=== PATIENT | male | born 1955 | race Caucasian/White ===

== ENCOUNTER 2016-05-29 22:20 | Inpatient (IN) | payer OTHER, MEDICARE ==
[~2016-05-29] VITALS: Ht 175.3 cm; Wt 122.9 kg
[2016-05-29 22:24] VITALS: BP 194/89; PULSE 79; RESP 18; TEMP 98.2; O2SAT 95
[2016-05-30 02:58] LABS: AUTOMATED NEUTROPHIL # 3.9 TH/MM3 (1.8-7.7); BASOPHIL # 0.1 TH/MM3 (0-0.2); BASOPHIL % 0.7 % (0.0-2.0); EOSINOPHIL # 0.2 TH/MM3 (0-0.4); EOSINOPHIL % 2.5 % (0.0-4.0); HEMATOCRIT 37.5 % (39.0-51.0); LYMPH % 34.8 % (9.0-44.0); LYMPHOCYTE # 2.7 TH/MM3 (1.0-4.8); MEAN CELL VOLUME 87.9 FL (80.0-100.0); MEAN CORPUSCULAR HEMOGLOBIN 30.9 PG (27.0-34.0); MEAN CORPUSCULAR HGB CONC 35.2 % (32.0-36.0); MONO % 11.4 % (0.0-8.0); NEUT % 50.6 % (16.0-70.0); PLATELET COUNT 148 TH/MM3 (150-450); RED BLOOD COUNT 4.26 MIL/MM3 (4.50-5.90); RED CELL DISTRIBUTION WIDTH 13.3 % (11.6-17.2); WHITE BLOOD COUNT 7.8 TH/MM3 (4.0-11.0)
[2016-05-30 03:01] LABS: HEMO FLAGS DIFF FINAL
[2016-05-30 03:18] LABS: ALT (GPT) 63 U/L (12-78); ANION GAP 6 MEQ/L (5-15); AST (GOT) 72 U/L (15-37); BICARBONATE 30.3 MEQ/L (21.0-32.0); BLOOD UREA NITROGEN 10 MG/DL (7-18); CHLORIDE 106 MEQ/L (98-107); GLOMERULAR FILTRATION RATE 79 ML/MIN (>89); POTASSIUM 3.6 MEQ/L (3.5-5.1); SODIUM (NA) 142 MEQ/L (136-145)
[2016-05-30 03:26] LABS: ALKALINE PHOSPHATASE 152 U/L (45-117); TOTAL BILIRUBIN ADULT 0.3 MG/DL (0.2-1.0)
[2016-05-30] MEDS ORDERED: MAGN500T4 PO (03:39)
[2016-05-30] MEDS ORDERED: PRAZ2CAP PO (03:39)
[2016-05-30] MEDS ORDERED: GABA300C5 PO (03:39)
[2016-05-30] MEDS ORDERED: ZYPR2.5T2 PO (03:39)
[2016-05-30] MEDS ORDERED: CHOL1CAP6 (03:39)
[2016-05-30] MEDS ORDERED: BUME2TAB PO (03:39)
[2016-05-30] MEDS ORDERED: HYDROMORPHONE PUMP (03:39)
[2016-05-30] MEDS ORDERED: ALPR1TAB3 PO (03:39)
[2016-05-30] MEDS ORDERED: SULF500T3 PO (03:39)
[2016-05-30] MEDS ORDERED: DHEA25CA (03:39)
[2016-05-30] MEDS ORDERED: FLUO60TA PO (03:39)
[2016-05-30 03:43] LABS: ACETAMINOPHEN LESS THAN 2.0 MCG/ML (10.0-30.0)
--- NOTE | 2016-05-30 04:34 | PD ---
HPI Chief Complaint: Psychiatric Symptoms Time Seen by Provider: 02:17 Travel History International Travel<30 days: No Contact w/Intl Traveler<30days: No Traveled to known affect area: No History of Present Illness HPI The patient is a 61 year old male who presents to the [facility] [address] emergency department with a history of increasing problems with depression over the last year. He reports that his depression is starting to affect his relationship with his and cause her increased stress. He also reports that he's been having mood swings and then argumentative with other family members. The patient reports that he's had difficulty getting along with multiple psychiatrists. He reports that his primary care physician has been prescribing his depression medication. This last week he went to her related to his depression being worse and experiencing suicidal ideations. He reports that he was started on Zyprexa. He reports that he is concerned about taking Zyprexa as he developed a reaction to Abilify approximately a year and a half ago. 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 He reports that he has been considering plans of harming himself, however he is also concerned about his receiving' s pension. He reports that he has been admitted for psychiatric reasons in the past. The patient reports having difficulty sleeping, he reports that he has daytime drowsiness and frequently falls. He reports that he was diagnosed with sleep apnea, however he is not tolerating wearing his mask. The patient denies any recent fevers, cough, congestion, neck pain, chest pain, shortness of breath , abdominal pain, vomiting, diarrhea, urinary symptoms, or other neurologic symptoms. [facility] Past Medical History Narrative Medical The patient's past medical history is significant for sleep apnea, chronic back pain, history of depression, posttraumatic stress disorder, bipolar disorder, neuropathy, peripheral edema. Bipolar Disorder: Yes Anxiety: Yes Depression: Yes Cardiovascular Problems: Yes (DEPENDENT EDEMA) Neurologic: Yes (NEUROPATHY) Tetanus Vaccination: Unknown Influenza Vaccination: No Past Surgical History Narrative Surgical The patient's past surgical history is significant for 4 prior back surgeries, 2 knee surgeries, pain pump implant, carpal tunnel release, ulnar nerve release bilaterally Neurologic Surgery: Yes (BACK X 4) Other Surgery: Yes (PAIN PUMP) Social History Alcohol Use: No Tobacco Use: No Substance Use: No Allergies-Medications (Allergen,Severity, Reaction): Coded Allergies: No Known Allergies (Unverified , 05/29/16) Reported Meds & Prescriptions Reported Meds & Active Scripts Active Reported Dhea (Prasterone (DHEA)) 25 Mg Cap Vitamin D-3 (Cholecalciferol) 1,000 Unit Cap Magnesium 500 Mg Tab 500 Mg PO DAILY Alprazolam 1 Mg Tab 1 Mg PO Q6H PRN [Hydromorphone Pump] 8.402 DAILY Bumetanide 2 Mg Tab 2 Mg PO Prazosin (Prazosin HCl) 2 Mg Cap 2 Mg PO HS Fluoxetine (Fluoxetine HCl) 60 Mg Tab 80 Mg PO DAILY Sulfasalazine 500 Mg Tab 500 Mg PO DAILY Zyprexa (Olanzapine) 2.5 Mg Tab Unknown Dose PO BID Gabapentin 300 Mg Cap 300 Mg PO HS Review of Systems Except as stated in HPI: all other systems reviewed are Neg General / Constitutional: No: Fever Eyes: No: Visual changes HENT: No: Headaches Cardiovascular: No: Chest Pain or Discomfort Respiratory: No: Shortness of Breath Gastrointestinal: No: Abdominal Pain Genitourinary: No: Dysuria Musculoskeletal: No: Pain Skin: No Rash Neurologic: No: Weakness, Focal Abnormalities, Change in Mentation, Slurred Speech, Sensory Disturbance Psychiatric: Positive: Anxiety, Depression, Suicidal Ideations, Mood Disorder, No: Homicidal Ideation Endocrine: No: Polydipsia Hematologic/Lymphatic: No: Easy Bruising Physical Exam Narrative General: The patient is a well-developed well-nourished male in no acute medical distress. Head and Neck exam: Head is normocephalic atraumatic. Eyes: EOMI, pupils are equal round and reactive to light. Nose: Midline septum with pink mucous membranes Mouth: Dentition unremarkable. Moist mucus membranes. Posterior oropharynx is not erythematous. No tonsillar hypertrophy. Uvula midline. Airway patent. Neck: No palpable lymphadenopathy. No nuchal rigidity. No thyromegaly. Cardiovascular: Regular rate and rhythm without murmurs, gallops, or rubs. Lungs: Clear to auscultation bilaterally. No wheezes, rhonchi, or rales. Abdomen: Soft, without tenderness to palpation in all 4 quadrants of the abdomen. No guarding, rebound, or rigidity. Normal bowel sounds are audible Extremities: No clubbing or cyanosis. The patient has trace to 1+ pitting edema bilateral lower extremities. No calf tenderness on palpation. Back: No costovertebral angle tenderness to palpation. Neurologic Exam: Grossly nonfocal. Skin Exam: No rash noted. Intact skin that is warm and dry. Data Data Last Documented VS Vital Signs Date Time Temp Pulse Resp B/P Pulse Ox O2 Delivery O2 Flow Rate FiO2 05/30/16 02:00 71 16 05/29/16 22:24 98.2 194/89 95 Orders Complete Blood Count With Diff (05/30/16 02:18) Comprehensive Metabolic Panel (05/30/16 02:18) Thyroid Stimulating Hormone (05/30/16 02:18) Urinalysis - C+S If Indicated (05/30/16:18) Iv Access Insert/Monitor (05/30/16:18) Ecg Monitoring (05/30/16:18) Psych Screen (05/30/16:18) Drug Screen, Random Urine (05/30/16:18) Alcohol (Ethanol) (05/30/16 02:18) Salicylates (Aspirin) (05/30/16 02:18) Tylenol (Acetaminophen) (05/30/16 02:18) Labs Laboratory Tests Test 05/30/16 02:30 White Blood Count 7.8 TH/MM3 Red Blood Count 4.26 MIL/MM3 Hemoglobin 13.2 GM/DL Hematocrit 37.5 % Mean Corpuscular Volume 87.9 FL Mean Corpuscular Hemoglobin 30.9 PG Mean Corpuscular Hemoglobin 35.2 % Concent Red Cell Distribution Width 13.3 % Platelet Count 148 TH/MM3 Mean Platelet Volume 9.6 FL Neutrophils (%) (Auto) 50.6 % Lymphocytes (%) (Auto) 34.8 % Monocytes (%) (Auto) 11.4 % Eosinophils (%) (Auto) 2.5 % Basophils (%) (Auto) 0.7 % Neutrophils # (Auto) 3.9 TH/MM3 Lymphocytes # (Auto) 2.7 TH/MM3 Monocytes # (Auto) 0.9 TH/MM3 Eosinophils # (Auto) 0.2 TH/MM3 Basophils # (Auto) 0.1 TH/MM3 CBC Comment DIFF FINAL Differential Comment Sodium Level 142 MEQ/L Potassium Level 3.6 MEQ/L Chloride Level 106 MEQ/L Carbon Dioxide Level 30.3 MEQ/L Anion Gap 6 MEQ/L Blood Urea Nitrogen 10 MG/DL Creatinine 0.97 MG/DL Estimat Glomerular Filtration 79 ML/MIN Rate Random Glucose 85 MG/DL Calcium Level 8.6 MG/DL Total Bilirubin 0.3 MG/DL Aspartate Amino Transf 72 U/L (AST/SGOT) Alanine Aminotransferase 63 U/L (ALT/SGPT) Alkaline Phosphatase 152 U/L Total Protein 7.8 GM/DL Albumin 3.6 GM/DL Thyroid Stimulating Hormone 1.360 uIU/ML 3rd Gen Salicylates Level LESS THAN 1.7 MG/DL Acetaminophen Level LESS THAN 2.0 MCG/ML Ethyl Alcohol Level LESS THAN 3 MG/DL MDM Medical Decision Making Medical Screen Exam Complete: Yes Emergency Medical Condition: Yes Medical Record Reviewed: Yes Differential Diagnosis Depression with suicidal ideations, versus exacerbation of bipolar disorder Narrative Course During the course of the patients emergency department visit, the patients history, examination, and differential diagnosis were reviewed with the patient. The patient had IV access obtained and blood work sent for analysis. The patient was placed on a bus driver/monitor with oximetry and blood pressure monitoring. A psychiatric screen was ordered. The patients laboratory studies were reviewed and remarkable for a white count of 7.8, hemoglobin 13.2, platelets 148 with 11.4 monocytes, CMP is remarkable for GFR 79, AST 72, alkaline phosphatase 152, TSH 1.36, salicylate less than 1.7 , acetaminophen less than 2, alcohol level less than 3 The patient has been medically cleared for admission to the psychiatric service. The patient is a voluntary admission. The patient meets admission criteria for stabilization from a psychiatric standpoint as he is increasingly depressed with suicidal ideations and a plan. Diagnosis Primary Impression: Depression with suicidal ideation Admitting Information Admitting Physician Requests: Admit Lauren Barr MD May 30, 2016 04:33
[2016-05-30 07:58] VITALS: BP 178/79
[2016-05-30] MEDS ORDERED: BENZTROPINE MESYLATE 2 MG/2 ML VIAL IM PRN (08:45)
[2016-05-30] MEDS ORDERED: LORazepam 2 MG/ML VIAL IM PRN (08:45)
[2016-05-30] MEDS ORDERED: BENZTROPINE MESYLATE 1 MG TAB PO PRN (08:45)
--- NOTE | 2016-05-30 08:47 | HHI.HP ---
Provisional Diagnosis Admission Date 05/30/2016 [place]. 1. Major depressive disorder, recurrent, severe without psychotic features Rule out contribution from sleep disorder 2. Rule out posttraumatic stress disorder 3. Underlying sleep disorder with features of insomnia, reported central sleep apnea and parasomnias Certification of Person's Competence To Provide Express and Informed Consent I have personally examined Hans Tidwell , a person being served at [facility] on, May 30, 2016 08:34. Express and informed consent means consent voluntarily given in writing, by a competent person, after sufficient explanation and disclosure of the subject matter involved to enable the person to make a knowing and willful decision without any element of force, fraud, deceit, duress, or other form of constraint or coercion. This person is 18 years of age or older, is not now known to be incompetent to consent to treatment with a guardian advocate, and does not have a health care surrogate or proxy currently making medical treatment decisions. I have found this person to be one of the following: [x] Competent to provide express and informed consent, as defined above, for voluntary admission to this facility and is competent to provide express and informed consent for treatment. He/she has the consistent capacity to make well reasoned, willful, and knowing decisions concerning his or her medical or mental health treatment. The person fully and consistently understands the purpose of the admission for examination/placement and is fully capable of personally exercising all rights assured [place] Incompetent to provide express and informed consent to voluntary admission, and this is incompetent to provide express and informed consent to treatment. The person must be transferred to involuntary status and a petition for a guardian advocate filed with the Circuit Court. [] Refusing to provide express and informed consent to voluntary admission but is competent to provide express and informed consent for treatment. The person must be discharged or transferred to involuntary status. Form shall be completed within 24 hours of a person's arrival at the receiving facility and filed in the clinical record of each person: 1. Admitted on a voluntary basis 2. Permitted to provide express and informed consent to his/her own treatment 3. Allowed to transfer from involuntary to voluntary status 4. Prior to permitting a person to consent to his or her own treatment after having been previously found incompetent to consent to treatment. History of Present Illness Capacity: Has Capacity HPI Mr. Tidwell is a 61-year-old male with a reported history of posttraumatic stress disorder and sleep disorder who presents on a voluntary basis for psychiatric evaluation. Reviewing our electronic medical record, I note that this is patient's first visit to [facility]. Patient seen and examined. Chart reviewed. Case discussed with nurse in the J- pod. Patient's is at the bedside. On my examination today, the patient reports that he has been struggling with sleep disorder for the last 20 years or so. He reports that he will go for 3 days without sleep during which she feels quite fatigued and then "crash" and sleep for 3 or 4 hours. He feels quite fatigued when he goes without sleep. He has seen sleep specialists in the past and has had PSG's. From what I can discern from his narrative, he has been diagnosed with some degree of central sleep apnea and decreased REM sleep. He is prescribed PAP therapy but is reportedly nonadherent with it. Patient reports that he has been feeling depressed over the last year or so. Concentration is poor. Energy level is low. Anhedonia present. Irritability present. He reports that within the last few weeks he has been feeling suicidal although he does not articulate a specific plan or intent at this time. No hypomanic or manic symptoms. Denies audiovisual hallucinations except possibly some hypnagogic and hypnopompic hallucinations. No evident delusions. He describes vivid dreams but not nightmares per se. Possibly some hyperarousal but no reported avoidance. The remainder of the psychiatric ROS is negative. Past psychiatric history: Patient reports a prior diagnosis of PTSD. He reports that he has been out of psychiatric care for 10 months but has previously seen Marlyn Orlando and Julia. He reports that he was psychiatrically admitted in 1995 with opiate withdrawal. He denies any history of suicide attempts. ROS: Patient describes somnambulism with falls during sleep. He also reports violent outbursts during sleep. 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 No homicidal ideation. No known history of violence. Patient is feeling somewhat more irritable. Violence risk - self (6 mos) Elevated. Patient endorses worsening mood with suicidal ideation. 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 Denies any other substance use. Alcohol level undetectable. Urine toxicology not available for my review. Past Family Social History Coded Allergies: No Known Allergies (Unverified , 05/29/16) Past Medical History Includes a history of back pain and sleep disorder. Reported Medications Prasterone (Dhea)25 Mg Cap 05/30/16 Cholecalciferol (Vitamin D-3)1,000 Unit Cap 05/30/16 Magnesium 500 Mg [id number] Mg PO DAILY Ref 0 05/30/16 Alprazolam 1 Mg Tab1 Mg PO Q6H PRN (ANXIETY) Ref 0 05/30/16 [Hydromorphone Pump] No Conflict Check8.402 Daily 05/30/16 Bumetanide 2 Mg Tab2 Mg PO Ref 0 05/30/16 Prazosin 2 Mg Cap2 Mg PO HS #60 CAP Ref 0 05/30/16 Fluoxetine 60 Mg Tab80 Mg PO DAILY #30 TAB Ref 0 05/30/16 Sulfasalazine 500 Mg [id number] Mg PO DAILY #120 TAB Ref 0 05/30/16 Olanzapine (Zyprexa)2.5 Mg Tab5 PO BID #60 TAB Ref 0 05/30/16 Gabapentin 300 Mg [id number] Mg PO HS #30 CAP Ref 0 05/30/16 Family History Patient denies a family history of serious mental illness, substance use disorder or suicide Social History Patient reports that he lives with his . He has 2 grown children and grandchildren. 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 He has a 12th grade education and some college. Denies any or legal history. He was a Evangelical for 22 years and then returned to his Jain hussein. He previously did had a firearm, but his removed from the home. Patient's Strengths (min. 2) In a monitored setting. Verbally fluent. Physical Exam Physical examination completed by ED provider. On my examination today, patient appears to be in no acute physical distress. No motor abnormalities noted. Laboratories and vital signs reviewed: Vital Signs Vital Signs Date Time Temp Pulse Resp B/P Pulse Ox O2 Delivery O2 Flow Rate FiO2 05/30/16 07:58 178/79 05/30/16 02:00 71 16 05/29/16 22:24 98.2 95 Lab Results Item Value Date Time White Blood Count 7.8 TH/MM3 05/30/16229 Hemoglobin 13.2 GM/DL 05/30/16229 Platelet Count 148 TH/MM3 L 05/30/16229 Sodium Level 142 MEQ/L 05/30/16229 Potassium Level 3.6 MEQ/L 05/30/16229 Chloride Level 106 MEQ/L 05/30/16229 Carbon Dioxide Level 30.3 MEQ/L 05/30/16229 Blood Urea Nitrogen 10 MG/DL 05/30/16229 Creatinine 0.97 MG/DL 05/30/16229 Aspartate Amino Transf (AST/SGOT) 72 U/L H 05/30/16229 Alanine Aminotransferase (ALT/SGPT) 63 U/L 05/30/16229 Alkaline Phosphatase 152 U/L H 05/30/16229 Thyroid Stimulating Hormone 3rd Gen 1.360 uIU/ML 05/30/16229 Ethyl Alcohol Level LESS THAN 3 MG/DL 05/30/16229 Mental Status Examination Patient is casually dressed. He is fairly well groomed and certainly maintaining basic hygiene. He is awake and alert and oriented to person, Hospital and approximate date. No evidence of delirium. No motor abnormalities noted. Speech is within normal limits for rate, tone and volume. Language and fund of knowledge seem average. Mood is reportedly depressed and affect is restricted and dysphoric. Thought process linear. No loosening of associations. No evident delusions. No audiovisual hallucinations. Endorses suicidal ideation without specific plan or intent. No reported urge to hurt himself on the inpatient psychiatric unit. No homicidal ideation. Insight and judgment are fair. Assessment & Plan Problem List: (1) Major depressive disorder ICD Code: F32.9 Assessment & Plan This is a 61-year-old male with psychiatric history as detailed above who presents on a voluntary basis seeking psychiatric evaluation. On my examination today, the patient describes worsening depression with onset of suicidal ideation. He also seems to have a comorbid sleep disorder with components of insomnia, central sleep apnea nonadherent with PAP therapy and some degree of parasomnia. I suspect the sleep disorder may be exacerbating his psychiatric condition. The patient is requesting voluntary psychiatric admission for stabilization in order to allow him to participate in a course of cognitive behavioral therapy for insomnia. I will plan to admit the patient to the inpatient psychiatric unit for observation and stabilization. Admit inpatient. Voluntary status. I have asked the nursing staff to clarify patient's home medication regimen (e.g. dose of Zyprexa is unclear) and also obtain from most recent records from patient's psychiatrist as well as his sleep physician to better guide treatment going forward. I will continue patient's Prozac and prazosin. Ativan as needed for anxiety, Cogentin as needed for EPS, Benadryl as needed for sleep. Vitals every shift. Counselor to see. Disposition planning. Estimated length of stay: 5-7 days. Discharge Planning Pending psychiatric stabilization Request HC Surrog/Guard Advoc?: No Problem Qualifiers (1) Major depressive disorder: Qualified Code: F33.2 - Severe episode of recurrent major depressive disorder, without psychotic features Ko Rasheed MD May 30, 2016 08:47
[2016-05-30] MEDS: sulfaSALAzine 500 MG TAB PO SCH (09:00)
[2016-05-30] MEDS: FLUoxetine HCL 20 MG CAP PO SCH (09:00)
[2016-05-30] MEDS: REMOVE OLD PATCH T-DERMAL SCH (09:00)
[2016-05-30] MEDS: NICOTINE 21 MG/24 HR PATCH T-DERMAL SCH (09:00)
[2016-05-30 09:21] LABS: BLOOD, URINE NEG (NEG); COMMENT (UR) CULT NOT INDICATED; CULTURE IF INDICATED CULT NOT INDICATED; GLUCOSE,URINE NEG (NEG); KETONE, URINE NEG (NEG); MUCUS URINE FEW /lpf (OCC); NITRITE,URINE NEG (NEG); PH, URINE 6.5 (5.0-8.5); URINE COLOR DARK-YELLOW (YELLW/STRAW)
[2016-05-30 09:27] LABS: AMPHETAMINE, URINE NEG (NEG); BARBITURATES, URINE NEG (NEG); COCAINE, URINE NEG (NEG)
[2016-05-30 11:54] VITALS: BP 157/78; PULSE 60; RESP 16; TEMP 98.6; O2SAT 96
[2016-05-30] MEDS: MAGNESIUM OXIDE 400 MG TAB PO SCH (16:00)
[2016-05-30] MEDS: LORazepam 0.5 MG TAB PO PRN (16:18)
[2016-05-30] MEDS: ALUMINUM/MAGNESIUM/SIMETH 30 ML CUP PO PRN (16:18)
[2016-05-30 19:11] VITALS: BP 161/71; PULSE 68; RESP 16
[2016-05-30 19:35] VITALS: BP 146/67; PULSE 61; RESP 16; TEMP 98; O2SAT 95
--- NOTE | 2016-05-30 20:22 | RADRPT ---
EXAM DATE/TIME: 05/30/2016 19:50 [facility] COMPARISON: No previous studies available for comparison. INDICATIONS : Right hip pain. MEDICAL HISTORY : None. SURGICAL HISTORY : None. ENCOUNTER: Initial ACUITY: 1 day PAIN SCORE: 0/10 LOCATION: Right hip FINDINGS: Examination of the right hip was performed with AP Pelvis. There is moderate osteoarthritis of the h ips. Infusion catheter apparatus projected over the lower spinal canal and left lower quadrant. Previ ous fixation lower lumbar spine with laminectomies. CONCLUSION: 1. Moderate osteoarthritis of the bilateral hips. Joaquín Hawkins MD on May 30, 2016 at 20:11 Board Certified Radiologist. This report was verified electronically.
[2016-05-30 20:50] VITALS: BP 160/72; PULSE 67; RESP 18; TEMP 98.3; O2SAT 95
[2016-05-30] MEDS: GABAPENTIN 300 MG CAP PO SCH (21:34)
[2016-05-30] MEDS: PRAZOSIN HCL 2 MG CAP PO SCH (21:34)
[2016-05-30] MEDS: ACETAMINOPHEN 325 MG TAB PO PRN (21:35)
[2016-05-31 00:53] VITALS: BP 149/71; PULSE 61; RESP 20; TEMP 98.2; O2SAT 95
[2016-05-31] MEDS: diphenhydrAMINE HCL 50 MG CAP PO PRN ×2 (02:10→22:00)
[2016-05-31 05:18] VITALS: BP 131/60; PULSE 66; RESP 18; TEMP 98.5; O2SAT 99
[2016-05-31 06:39] VITALS: BP 131/60; PULSE 66; RESP 20; TEMP 98.5; O2SAT 99
[2016-05-31] MEDS: NICOTINE 21 MG/24 HR PATCH T-DERMAL SCH (09:00)
[2016-05-31] MEDS ORDERED: INFLUENZA VIRUS VACCINE (QUADRIVALENT) 0.5 ML SYR IM ONE (09:00)
[2016-05-31] MEDS: REMOVE OLD PATCH T-DERMAL SCH (09:00)
[2016-05-31] MEDS: FLUoxetine HCL 20 MG CAP PO SCH (09:20)
[2016-05-31] MEDS: MAGNESIUM OXIDE 400 MG TAB PO SCH (09:21)
[2016-05-31] MEDS: sulfaSALAzine 500 MG TAB PO SCH (09:21)
[2016-05-31] MEDS: LORazepam 0.5 MG TAB PO PRN (09:30)
--- NOTE | 2016-05-31 09:40 | HHI.PYPN ---
Subjective Remarks Patient continues to report that he just can't take it anymore. He presents himself as unable to live with his current situation and his chronic history of depression and nonresponse to medications. To this physician he appears invested in remaining ill. He does not use his sleep apnea machine despite the fact that he has great difficulty with sleeping. This could also affect his mood. This physician spoke with Dr. Sugey mora about ongoing treatment. Review of Systems ROS Limitations: Clinical Condition Except as stated in HPI: all other systems reviewed are Neg Objective Alert: Yes [place]: Person, Place, Date, Situation Mood: Calm Affect: Restricted Memory Intact: Immediate, Recent, Remote Hallucinations: Other Delusions: No Delusion Type: Other Suicidal: Ideation Homicidal: Ideation Insight/Judgment Impaired Vitals/IOs Vital Signs Date Time Temp Pulse Resp B/P Pulse Ox O2 Delivery O2 Flow Rate FiO2 05/31/16 06:39 98.5 66 20 131/60 99 Assessment & Plan Problem List: (1) Major depressive disorder ICD Code: F32.9 Assessment & Plan Estimated LOS: 4-5 days patient continues to complain vociferously and tangentially about his numerous somatic issues and his numerous stressors and his numerous emotional issues. This physician spoke with Dr. Sugey mora about medication management and he will accept the patient in transfer. Justification for Cont. Inpt. Suicidal ideation. Request HC Surrog/Guard Advoc?: No Problem Qualifiers (1) Major depressive disorder: Qualified Code: F33.2 - Severe episode of recurrent major depressive disorder, without psychotic features Antonio Brothers MD May 31, 2016 09:40
[2016-05-31 09:53] LABS: ANION GAP 7 MEQ/L (5-15); BICARBONATE 29.9 MEQ/L (21.0-32.0); BLOOD UREA NITROGEN 12 MG/DL (7-18); CHLORIDE 102 MEQ/L (98-107); GLOMERULAR FILTRATION RATE 93 ML/MIN (>89); HDL CHOLESTEROL 45.9 MG/DL (40.0-60.0); LDL CHOLESTEROL 117 MG/DL (0-99); POTASSIUM 3.9 MEQ/L (3.5-5.1); SODIUM (NA) 139 MEQ/L (136-145)
--- NOTE | 2016-05-31 13:34 | PD.CONS ---
HPI Service [facility] Hospitalists Consult Requested By Psychiatric service Reason for Consult Medical management Primary Care Physician Ana Fitzpatrick MD Diagnoses: History of Present Illness This is a 61-year-old male with a past medical history significant for PTSD, anxiety, sleep disorder, depression, FAITH non CPAP compliant, degenerative disc disease lumbar spine status post back surgery 4 including previous fusion, neuropathy, chronic back pain, previous PE and BPH who was admitted to [facility] on a voluntary basis for psychiatric evaluation for worsening depression and suicidal ideation. Hospitalist service was consulted for medical management. Patient was seen and examined today. Patient complains of stream fatigue secondary to loss of sleep. He also complains of new onset swelling in his legs and feet just since his admission to psych facility. He denies any fever/chills, nausea/vomiting, dizziness, lightheadedness, palpitations, chest pain, shortness of breath, abdominal pain or diarrhea. Patient does report intermittent constipation. His last BM was yesterday. He also reports so to of bright red blood per rectum the most recent being yesterday. He denies previous diagnosis of hemorrhoids. He denies any dark or tarry stools. He states he has a history of intermittent urinary retention. He's had a previous TURP in the past. He self caths intermittently. He reports extreme hesitancy which is chronic. Patient states he has a rather sedentary lifestyle. He uses a cane at home and uses a wheelchair for community ambulation. Review of Systems Except as stated in HPI: all other systems reviewed are Neg (10 point review of systems completed and all pertinents negative except as stated in history of present illness) Past Family Social History Allergies: Coded Allergies: No Known Allergies (Unverified , 05/29/16) Past Medical History PTSD Anxiety BPH Intermittent urinary retention Degenerative disc disease of lumbar spine History of PE FAITH, non CPAP compliant Lower extremity neuropathy Chronic pain syndrome status post implantation of Dilaudid pain pump Past Surgical History TURP Status post implantation of a pain pump Back surgery 4 including a previous fusion Knee surgery x 2 CTR Ulnar nerve release bilaterally Reported Medications Prasterone (Dhea)25 Mg Cap 05/30/16 Cholecalciferol (Vitamin D-3)1,000 Unit Cap 05/30/16 Magnesium 500 Mg [id number] Mg PO DAILY Ref 0 05/30/16 Alprazolam 1 Mg Tab1 Mg PO Q6H PRN (ANXIETY) Ref 0 05/30/16 [Hydromorphone Pump] No Conflict Check8.402 Daily 05/30/16 Bumetanide 2 Mg Tab2 Mg PO Ref 0 05/30/16 Prazosin 2 Mg Cap2 Mg PO HS #60 CAP Ref 0 05/30/16 Fluoxetine 60 Mg Tab80 Mg PO DAILY #30 TAB Ref 0 05/30/16 Sulfasalazine 500 Mg [id number] Mg PO DAILY #120 TAB Ref 0 05/30/16 Olanzapine (Zyprexa)2.5 Mg Tab5 PO BID #60 TAB Ref 0 05/30/16 Gabapentin 300 Mg [id number] Mg PO HS #30 CAP Ref 0 05/30/16 Active Ordered Medications Current Medications Medications (Trade) Dose Ordered Sig/Reinier Route Start Time Stop Time Status Last Admin (PROzac) 80 mg DAILY PO 05/30/16 09:00 05/31/16 09:20 (Neurontin) 300 mg HS PO 05/30/16 21:00 05/30/16 21:34 (Minipress) 2 mg HS PO 05/30/16 21:00 05/30/16 21:34 (Azulfidine) 500 mg DAILY PO 05/30/16 09:00 05/31/16 09:21 (Mag-Ox) 400 mg DAILY PO 05/30/16 10:00 05/31/16 09:21 (Ativan) 0.5 mg Q12H PRN PO 05/30/16 08:45 05/30/16 16:18 (Ativan Inj) 0.5 mg Q12H PRN IM 05/30/16 08:45 (Benadryl) 50 mg HS PRN PO 05/30/16 08:45 05/31/16 02:10 (Tylenol) 650 mg Q4H PRN PO 05/30/16 08:45 05/30/16 21:35 (Milk Of Magnesia Liq) 30 ml DAILY PRN PO 05/30/16 08:45 (Mag-Al Plus Susp Liq) 30 ml Q6H PRN PO 05/30/16 08:45 05/30/16 16:18 (Habitrol 21 Mg Patch.24 Hr) 1 patch DAILY T-DERMAL 05/30/16 09:00 (Cogentin) 1 mg Q12H PRN PO 05/30/16 08:45 (Cogentin Inj) 1 mg Q12H PRN IM 05/30/16 08:45 Miscellaneous Information 1 DAILY T-DERMAL 05/30/16 09:00 Family History Father - coronary artery disease, prostate cancer, lung cancer Mother - DM Social History Patient is and lives with his . He is currently on disability but previously worked as a deputy. He has a remote history of tobacco use having quit 25 years ago and previous to that he reports smoking half pack a day for 16 years. He denies any alcohol consumption or illicit drug use. Physical Exam Vital Signs Vital Signs Date Time Temp Pulse Resp B/P Pulse Ox O2 Delivery O2 Flow Rate FiO2 05/31/16 06:39 98.5 66 20 131/60 99 05/31/16 05:18 98.5 66 18 131/60 99 05/31/16 00:53 98.2 61 20 149/71 95 05/30/16 20:50 98.3 67 18 160/72 95 05/30/16 19:35 98.0 61 16 146/67 95 05/30/16 19:11 68 16 161/71 Physical Exam GENERAL: This is a well-nourished, well-developed patient, in no apparent distress. A&Ox3. Pleasant and cooperative. SKIN: No rashes, ecchymoses or lesions. Warm and dry. HEAD: Atraumatic. Normocephalic. No temporal or scalp tenderness. EYES: Pupils equal round and reactive. Extraocular motions intact. No scleral icterus. No injection or drainage. ENT: Nose without bleeding, purulent drainage or septal hematoma. Throat without erythema, tonsillar hypertrophy or exudate. Uvula midline. Airway patent. NECK: Trachea midline. No lymphadenopathy. Supple, nontender, no meningeal signs. CARDIOVASCULAR: Regular rate and rhythm without murmurs, gallops, or rubs. RESPIRATORY: Clear to auscultation. Breath sounds equal bilaterally. No wheezes , rales, or rhonchi. GASTROINTESTINAL: Abdomen soft, non-tender, nondistended. No hepato-splenomegaly , or palpable masses. No guarding. MUSCULOSKELETAL: Extremities without clubbing or cyanosis. 1+ edema noted in BLEs. No joint tenderness or effusion noted. No calf tenderness. NEUROLOGICAL: Awake and alert. Laboratory Laboratory Tests Test 05/31/16 07:56 Sodium Level 139 Potassium Level 3.9 Chloride Level 102 Carbon Dioxide Level 29.9 Anion Gap 7 Blood Urea Nitrogen 12 Creatinine 0.84 Estimat Glomerular Filtration 93 Rate Random Glucose 97 Calcium Level 9.2 Triglycerides Level 159 Cholesterol Level 195 LDL Cholesterol 117 HDL Cholesterol 45.9 Cholesterol/HDL Ratio 4.24 Result Diagram: 05/30/16 0230 05/31/16 0756 Assessment and Plan Assessment and Plan 61-year-old male with a past medical history significant for PTSD, anxiety, sleep disorder, degenerative disc disease lumbar spine status post back surgery 4 including previous fusion, neuropathy, chronic back pain, previous PE and BPH who was admitted to [facility] on a voluntary basis for psychiatric evaluation for worsening depression and suicidal ideation. Hospitalist service was consulted for medical management. //Depression and suicidal ideation Management per psychiatric team //Bilateral lower extremity edema Patient's home Bumex held at time of admission likely contributing to patient 's increase in fluid retention Resume home Bumex dose 2mg daily. Patient denies previous history of CHF and denies ever having had an echocardiogram performed. Will order echo for further evaluation. Given patient's history of sedentary lifestyle and recent increase in bilateral lower x-ray swelling, will obtain Doppler studies to rule out DVT although there is a low likelihood Monitor electrolytes Monitor for improvement //Chronic back pain s/p previous implantation of pain pump PT eval/tx Continue with home sulfasalazine dose for inflammation per patient report //BPH with intermittent urinary retention requiring self cath Monitor UOP allow for self catheterization if indicated //Neuropathy continue with home Gabapentin dose //FAITH supplemental oxygen use at nighttime //BRBPR Likely secondary to hemorrhoids given history of intermittent opioid-induced constipation Hemoglobin and hematocrit stable monitor //DVT prophylaxis Lovenox sq Discussed with patient and Dr. Wayne The exam, history, and the medical decision-making described in the above note were completed with the assistance of the mid-level provider. I reviewed and agree with the findings presented. I attest that I had a [id number] encounter with the patient on the same day, and personally performed and documented my assessment and findings in the medical record. Zeynep Perez May 31, 2016 13:34 Crow Wayne MD May 31, 2016 21:50
[2016-05-31] MEDS: BUMETANIDE 1 MG TAB PO SCH (14:00)
[2016-05-31] MEDS: ACETAMINOPHEN 325 MG TAB PO PRN (15:07)
[2016-05-31 16:52] LABS: HEMOGLOBIN A1a 1.1 %; HEMOGLOBIN A1b 1.6 %; HEMOGLOBIN Ao 86.2 %; HEMOGLOBIN LA1C 1.8 %; HEMOGLOBIN P3 3.4 %
[2016-05-31] MEDS: ENOXAPARIN SODIUM 40 MG/0.4 ML SYRINGE SQ SCH (17:00)
[2016-05-31 17:07] VITALS: O2SAT 94
[2016-05-31 17:52] VITALS: BP 129/60; PULSE 65; RESP 17; TEMP 98.3; O2SAT 95
--- NOTE | 2016-05-31 19:49 | RADRPT ---
EXAM DATE/TIME: 05/31/2016 18:23 [facility] COMPARISON: No previous studies available for comparison. INDICATIONS : Bilateral lower extremity edema. MEDICAL HISTORY : Neuropathy. Bipolar disorder. Dependent edema. Anticoagulant, heparin. SURGICAL HISTORY : Back surgeries. Knee surgery. ENCOUNTER: Initial ACUITY: 1 day PAIN SCORE: 3/10 LOCATION: Bilateral legs. TECHNIQUE: Venous ultrasound of the left and right leg was performed from the inguinal ligament to the proximal calf. Real-time, color Doppler and spectral tracing, compression and augmentation techniques were us ed. FINDINGS: RIGHT LEG: There is normal compressibility of the deep venous system from the inguinal region to the proximal ca lf. No echogenic clot is seen in the lumen of the common femoral, femoral, popliteal, and posterior tibial veins. There is a normal response of the venous system to proximal and distal augmentation an d respiration. LEFT LEG: There is normal compressibility of the deep venous system from the inguinal region to the proximal ca lf. No echogenic clot is seen in the lumen of the common femoral, femoral, popliteal, and posterior tibial veins. There is a normal response of the venous system to proximal and distal augmentation an d respiration. CONCLUSION: Normal examination. Andrea Kirby Jr., MD on May 31, 2016 at 19:47 Board Certified Radiologist. This report was verified electronically.
[2016-05-31] MEDS: PRAZOSIN HCL 2 MG CAP PO SCH (20:56)
[2016-05-31] MEDS: GABAPENTIN 300 MG CAP PO SCH (20:56)
[2016-06-01] MEDS: MAGNESIUM HYDROXIDE SUSP 30 ML CUP PO PRN (02:43)
[2016-06-01] MEDS: LORazepam 0.5 MG TAB PO PRN ×2 (02:43→14:16)
[2016-06-01 05:15] VITALS: BP 165/89; PULSE 97; RESP 24; TEMP 98.1; O2SAT 95
[2016-06-01] MEDS ORDERED: oxyCODONE/ACETAMINOPHEN 7.5 MG/325 MG TAB PO ONE (06:15)
[2016-06-01 06:25] VITALS: BP 162/72; PULSE 76; RESP 18; TEMP 98.1; O2SAT 96
[2016-06-01 06:27] VITALS: BP 162/72; PULSE 76; RESP 18; TEMP 98.1; O2SAT 96
[2016-06-01 07:36] LABS: BICARBONATE 26.8 MEQ/L (21.0-32.0); MAGNESIUM 2.2 MG/DL (1.5-2.5); POTASSIUM 4.3 MEQ/L (3.5-5.1)
--- NOTE | 2016-06-01 07:41 | RADRPT ---
EXAM DATE/TIME: 06/01/2016 06:38 [facility] COMPARISON: No previous studies available for comparison. INDICATIONS : Fall, pain through entire spine. RADIATION DOSE: 30.20 CTDIvol (mGy) MEDICAL HISTORY : None SURGICAL HISTORY : Lumbar surgery ENCOUNTER: Initial ACUITY: 1 day PAIN SCALE: 7/10 LOCATION: back TECHNIQUE: Volumetric scanning of the cervical spine was performed. Multiplanar reconstructions in the sagittal, coronal and oblique axial planes were performed. Using automated exposure control and adjustment o f the mA and/or kV according to patient size, radiation dose was kept as low as reasonably achievable to obtain optimal diagnostic quality images. FINDINGS: VERTEBRAE: There are moderate primary degenerative changes throughout the cervical spine. There is some disc spa ce narrowing at all levels. No acute bony fracture. ALIGNMENT: No evidence of subluxation. C2-C3: The bony spinal canal is normal in size. No evidence of disc bulge or herniation. The neural forami na are bilaterally patent. C3-C4: Broad-based bulging with a disc osteophyte complex. There is narrowing of the neural foramina bilater ally. C4-C5: The bony spinal canal is normal in size. No evidence of disc bulge or herniation. The neural forami na are bilaterally patent. C5-C6: The bony spinal canal is normal in size. No evidence of disc bulge or herniation. There is narrowing of the right neural foramina from facet arthritis. The left neural foramen is patent. C6-C7: The bony spinal canal is normal in size. No evidence of disc bulge or herniation. The neural forami na are bilaterally patent. C7-T1: The bony spinal canal is normal in size. No evidence of disc bulge or herniation. The neural forami na are bilaterally patent. CONCLUSION: 1. No acute bony fracture. 2. Moderate diffuse primary bony degenerative changes, disc degeneration and disc space narrowing at multiple levels. 3. Broad-based bulge and a disc osteophyte complex at C3-4. Aldo Jacobson MD on June 01, 2016 at 7:36 Board Certified Radiologist. This report was verified electronically.
--- NOTE | 2016-06-01 07:43 | RADRPT ---
EXAM DATE/TIME: 06/01/2016 06:42 [facility] COMPARISON: No previous studies available for comparison. INDICATIONS : Fall, pain through entire spine. RADIATION DOSE: 32.57 CTDIvol (mGy) ; Combined studies - Thoracic Spine/Lumbar Spine MEDICAL HISTORY : None SURGICAL HISTORY : Lumbar surgery ENCOUNTER: Initial ACUITY: 1 day PAIN SCALE: 7/10 LOCATION: back TECHNIQUE: Volumetric scanning of the thoracic spine was performed. Multiplanar reconstructions in the sagittal , coronal and oblique axial planes were performed. Using automated exposure control and adjustment o f the mA and/or kV according to patient size, radiation dose was kept as low as reasonably achievable to obtain optimal diagnostic quality images. FINDINGS: The vertebral bodies of the thoracic spine are in normal alignment without evidence of subluxation. Vertebral body height is maintained. No fractures are seen. There are primary bony degenerative smalls ges throughout the thoracic spine. T1-T2: Normal. T2-T3: The thecal sac has a normal diameter. No evidence of disc bulge or protrusion. T3-T4: The thecal sac has a normal diameter. No evidence of disc bulge or protrusion. T4-T5: The thecal sac has a normal diameter. No evidence of disc bulge or protrusion. T5-T6: The thecal sac has a normal diameter. No evidence of disc bulge or protrusion. T6-T7: The thecal sac has a normal diameter. No evidence of disc bulge or protrusion. T7-T8: The thecal sac has a normal diameter. No evidence of disc bulge or protrusion. T8-T9: The thecal sac has a normal diameter. No evidence of disc bulge or protrusion. T9-T10: The thecal sac has a normal diameter. No evidence of disc bulge or protrusion. T10-T11: The thecal sac has a normal diameter. No evidence of disc bulge or protrusion. T11-T12: The thecal sac has a normal diameter. No evidence of disc bulge or protrusion. T12-L1: The thecal sac has a normal diameter. No evidence of disc bulge or protrusion. CONCLUSION: 1. No acute bony fracture. 2. Diffuse primary bony degenerative type changes. Aldo Jacobson MD on June 01, 2016 at 7:39 Board Certified Radiologist. This report was verified electronically.
--- NOTE | 2016-06-01 07:50 | RADRPT ---
EXAM DATE/TIME: 06/01/2016 06:42 [facility] COMPARISON: No previous studies available for comparison. INDICATIONS : Fall, pain through entire spine. RADIATION DOSE: 32.57 CTDIvol (mGy) ; Combined studies - Thoracic Spine/Lumbar Spine MEDICAL HISTORY : None SURGICAL HISTORY : Lumbar surgery ENCOUNTER: Initial ACUITY: 1 day PAIN SCALE: 7/10 LOCATION: back TECHNIQUE: Volumetric scanning of the lumbar spine was performed. Multiplanar reconstructions in the sagittal, coronal and oblique axial planes were performed. Using automated exposure control and adjustment of the mA and/or kV according to patient size, radiation dose was kept as low as reasonably achievable t o obtain optimal diagnostic quality images. FINDINGS: VERTEBRAE: Moderate diffuse primary degenerative changes are noted throughout the lumbar spine. There is evidenc e of previous lumbar spinal surgery with laminectomy and fusion from L2-S1. There is also fusion of t he left SI joint. There is disc degeneration with disc space narrowing at L1-2, L2-3, L3-4 and L5-S1. No acute bony fracture. The hardware is grossly intact. There is a spinal catheter in place with the tip at the level of T11-T12. ALIGNMENT: No evidence of subluxation. T12-L1: The thecal sac has a normal diameter. No evidence of disc bulge or protrusion. The neural foramina are patent bilaterally. L1-L2: The thecal sac has a normal diameter. No evidence of disc bulge or protrusion. The neural foramina are patent bilaterally. L2-L3: There is broad-based bulging with posterior bony degenerative changes causing some spinal canal steno sis. There is narrowing of the neural foramina bilaterally. There is a left-sided pedicular screw in place in the body of L2. L3-L4: Broad-based bulging with posterior bony degenerative changes causing some spinal canal stenosis. Ther e is narrowing of the neural foramina bilaterally. There is a pedicular screw on the left side in L3. L4-L5: There are bilateral pedicular screws in L4. No significant extradural defects are seen in the canal. The neural foramina appear patent bilaterally. There are postsurgical changes characteristic of a torres inectomy. L5-S1: The thecal sac has a normal diameter. No evidence of disc bulge or protrusion. The neural foramina are patent bilaterally. Postsurgical changes characteristic of a laminectomy. There is a single right pedicle screw in L5. There are 2 pedicular screws in S1. CONCLUSION: 1. No acute bony fracture. 2. Postsurgical changes characteristic of a laminectomy and fusion from L2-S1 3. Primary bony degenerative changes, disc degeneration and disc space narrowing at multiple levels. Aldo Jacobson MD on June 01, 2016 at 7:42 Board Certified Radiologist. This report was verified electronically.
--- NOTE | 2016-06-01 08:21 | HHI.PYPN ---
Subjective Remarks Patient seen and examined. Chart reviewed. Case discussed with nursing staff as well as with Dr. Brothers yesterday. Per nursing staff, the patient fell on his back this morning after disregarding nursing instructions not to get out of bed. The physician on-call consulted the hospitalist who has ordered a series of spine CTs. On my examination today, the patient continues to complain of initial insomnia. Neurotic personality traits are present. He is fretful and anxious. He says, "I feel safe here. I don't feel safe by myself." He says he feels like people are better off if her weren't around. He does not describe any active SI on the unit but says that he was thinking prior to admission about ways that he might kill himself. He says that he is troubled chiefly by moodiness and irritability and was wondering about trying lithium. He also wonders about returning to Abilify, although it sounds like this caused intolerable EPS. No side effects from current medications. Complains of back pain. Review of Systems Except as stated in HPI: all other systems reviewed are Neg Objective Alert: Yes [place]: Person, Place, Date, Situation Mood: Calm Affect: Restricted (dysphoric) Memory Intact: Comment (intact on clinical exam) Hallucinations: Other (No AVH) Delusions: No Delusion Type: Other (No delusions) Suicidal: Ideation (no current suicidal ideation but see above) Homicidal: Ideation (no homicidal ideation) Insight/Judgment Fair Remarks No motor abnormalities noted. Thought process linear. Speech within normal limits for rate, tone and volume. Labs Test 06/01/16 06:30 Sodium Level 141 MEQ/L Potassium Level 4.3 MEQ/L Chloride Level 109 MEQ/L Carbon Dioxide Level 26.8 MEQ/L Anion Gap 5 MEQ/L Blood Urea Nitrogen 12 MG/DL Creatinine 0.56 MG/DL Estimat Glomerular Filtration 149 ML/MIN Rate Random Glucose 102 MG/DL Calcium Level 8.8 MG/DL Magnesium Level 2.2 MG/DL Labs reviewed. Last Impressions Thoracic Spine CT 06/01/16 0000 Signed Impressions: Service Date/Time: , June 01, 2016 06:42 - CONCLUSION: 1. No acute bony fracture. 2. Diffuse primary bony degenerative type changes. Aldo Jacobson MD Lumbar Spine CT 06/01/16 0000 Signed Impressions: Service Date/Time: May 06:42 - CONCLUSION: 1. No acute bony fracture. 2. Postsurgical changes characteristic of a laminectomy and fusion from L2-S1 3. Primary bony degenerative changes, disc degeneration and disc space narrowing at multiple levels. Aldo Jacobson MD Cervical Spine CT 06/01/16 0000 Signed Impressions: Service Date/Time: May 06:38 - CONCLUSION: 1. No acute bony fracture. 2. Moderate diffuse primary bony degenerative changes, disc degeneration and disc space narrowing at multiple levels. 3. Broad-based bulge and a disc osteophyte complex at C3-4. Aldo Jacobson MD Lower Extremity Ultrasound 05/31/16 0000 Signed Impressions: Service Date/Time: Tuesday, May 31, 2016 18:23 - CONCLUSION: Normal examination. Andrea Kirby Jr., MD Hip and Pelvis X-Ray 05/30/16 0000 Signed Impressions: Service Date/Time: Monday, May 30, 2016 19:50 - CONCLUSION: 1. Moderate osteoarthritis of the bilateral hips. Joaquín Hawkins MD Vitals/IOs Vital Signs Date Time Temp Pulse Resp B/P Pulse Ox O2 Delivery O2 Flow Rate FiO2 06/01/16 06:27 98.1 76 18 162/72 96 05/31/16 17:07 21 Intake and Output 05/31/16 05/31/16 06/01/16 08:00 16:00 00:00 Intake Total 240 ml Balance 240 ml Assessment & Plan Problem List: (1) Major depressive disorder ICD Code: F32.9 Assessment & Plan With the benefit of further interaction with the patient I suspect there may be a significant component of [place] II pathology at play in the case. Risks and benefits of various psychopharmacologic options discussed with the patient. After our discussion, we decided to add lithium augmentation to existing psychotropic regimen; lithium 150mg BID. Renal function and TSH within normal limits. BMP over weekend. [place] level and BMP Sunday morning. Continue other psychotropics as ordered. Initial back imaging appears to be negative for fracture; await hospitalist follow-up. Continue to monitor on the inpatient unit. Continue other medications care as ordered. I reinforced to the patient that he must not get out of bed without assistance. Falls prec in place. Justification for Cont. Inpt. Monitoring for impairments in safety. Medication changes in process. Discharge Planning Pending psychiatric stabilization. I had hoped that some sort of residential aftercare might be an option but the counselor has explored the facilities locally and they do not accept the patient's insurance. Request HC Surrog/Guard Advoc?: No Problem Qualifiers (1) Major depressive disorder: Qualified Code: F33.2 - Severe episode of recurrent major depressive disorder, without psychotic features Ko Rasheed MD Jun 01, 2016 08:21
[2016-06-01] MEDS ORDERED: PILL SPLITTER OTHER PRN (08:30)
[2016-06-01] MEDS: ACETAMINOPHEN 325 MG TAB PO PRN ×3 (08:56→22:26)
[2016-06-01] MEDS: MAGNESIUM OXIDE 400 MG TAB PO SCH (09:00)
[2016-06-01] MEDS: LITHIUM CARBONATE 300 MG TAB PO SCH ×2 (09:00→22:34)
[2016-06-01] MEDS: NICOTINE 21 MG/24 HR PATCH T-DERMAL SCH (09:00)
[2016-06-01] MEDS: sulfaSALAzine 500 MG TAB PO SCH (09:00)
[2016-06-01] MEDS: FLUoxetine HCL 20 MG CAP PO SCH (09:00)
[2016-06-01] MEDS: BUMETANIDE 1 MG TAB PO SCH (09:00)
[2016-06-01] MEDS: REMOVE OLD PATCH T-DERMAL SCH (09:00)
[2016-06-01 10:17] VITALS: O2SAT 95
--- NOTE | 2016-06-01 13:39 | EC ---
Study Study Date:06/01/2016 STUDY CONCLUSIONS SUMMARY - Left ventricle: The cavity size was normal. Wall thickness was normal. Systolic function was normal. The estimated ejection fraction was in the range of 55% to 60%. Wall motion was normal; there were no regional wall motion abnormalities. - Aortic valve: Valve area: 2.55cm^2(VTI). Valve area: 2.28cm^2 (Vmax). - Mitral valve: Mild regurgitation. - Tricuspid valve: Mild regurgitation. If LV function is below 40, please consider prescribing an ACEI or ARB or document rationale for non-use. PROCEDURE DATA STUDY STATUS: Elective. Procedure: Transthoracic echocardiography. Image quality was good. Scanning was performed from the parasternal, apical, and subcostal acoustic windows. Study completion: The patient tolerated the procedure well. Transthoracic echocardiography. M-mode, complete 2D, complete spectral Doppler, and color Doppler. Height: Height: 69in. Weight: Weight: 267.4lb. Body mass index: BMI: 39.6kg/m^2. Body surface area: BSA: 2.34m^2. Patient status: Inpatient. CARDIAC ANATOMY LEFT VENTRICLE: The cavity size was normal. Wall thickness was normal. Systolic function was normal. The estimated ejection fraction was in the range of 55% to 60%. Wall motion was normal; there were no regional wall motion abnormalities. AORTIC VALVE: Trileaflet; normal thickness leaflets. Doppler: Transvalvular velocity was within the normal range. There was no stenosis. No regurgitation. Valve area: 2.55cm^2(VTI). Indexed valve area: 1.09cm^2/m^2 (VTI). Valve area: 2.28cm^2 (Vmax). Indexed valve area: 0.97cm^2/m^2 (Vmax). Mean gradient: 6mm Hg (S). AORTA: Aortic root: The aortic root was normal in size. MITRAL VALVE: Structurally normal valve. Doppler: Transvalvular velocity was within the normal range. There was no evidence for stenosis. Mild regurgitation. Peak gradient: 3mm Hg (D). LEFT ATRIUM: The atrium was normal in size. RIGHT VENTRICLE: The cavity size was normal. Wall thickness was normal. PULMONIC VALVE: Doppler: Transvalvular velocity was within the normal range. There was no evidence for stenosis. No regurgitation. TRICUSPID VALVE: Structurally normal valve. Doppler: Transvalvular velocity was within the normal range. Mild regurgitation. PULMONARY ARTERY: The main pulmonary artery was normal-sized. Systolic pressure was within the normal range. RIGHT ATRIUM: The atrium was normal in size. PERICARDIUM: There was no pericardial effusion. SYSTEMIC VEINS: Inferior vena cava: The vessel was normal in size. Patient weight: 267.4lb _Ejection fraction:_ 65-75% _Fractional shortening:_ 32% up to 5Kg 5-11.5Kg 11.6-22.9Kg 23-45Kg 45-57Kg Aortic Root 7-13 <17 13-22 17-27 17-27 LA diam 6-13 <23 24-38 33-47 37-40 RVID 10-17 7-15 7-15 7-18 8-17 LVIDd 12-22 <32 24-38 33-47 37-40 LVPW 2-4 3-6 5-7 6-8 7-8 IVS 2-4 3-6 5-7 6-8 7-8 BASIC MEASUREMENTS ADULT NORMAL Left ventricle LV internal dimension, ED, chordal 51.6 mm 43-52 level, PLAX LV internal dimension, ES, chordal 34.1 mm 23-38 level, PLAX Fractional shortening, chordal level, 34 % >29 PLAX LV posterior wall thickness, ED 10.1 mm IVS/LVPW ratio, ED 1 <1.3 Ventricular septum Septal thickness, ED 10.1 mm Aortic valve Leaflet separation 24 mm 15-26 Aorta Root diameter, ED 30 mm Left atrium Anterior-posterior dimension 39 mm Anterior-posterior dimension index 1.67 cm/m^2 <2.2 BASIC MEASUREMENTS ADULT NORMAL Aortic valve Leaflet separation 24 mm 15-26 DOPPLER MEASUREMENTS ADULT NORMAL Aortic valve Peak velocity, S 153 cm/s Mean velocity, S 112 cm/s VTI, S 31.4 cm Mean gradient, S 6 mm Hg Valve area, VTI 2.55 cm^2 Valve area index, VTI 1.09 cm^2/m^2 Valve area, Vmax 2.28 cm^2 Valve area index, Vmax 0.97 cm^2/m^2 Mitral valve Peak E-wave velocity 79.5 cm/s Peak A-wave velocity 100 cm/s Deceleration time 208 ms 150-230 Peak gradient, D 3 mm Hg Peak E/A ratio 0.8 Tricuspid valve Regurgitant peak velocity 265 cm/s Peak RV-RA gradient, S 28 mm Hg Maximal regurgitant velocity 265 cm/s Pulmonic valve Peak velocity, S 98.5 cm/s LEGEND: Mean values are shown as u=mean value. Asterisk (*) childress values outside specified normal range. Prepared and signed by Rashel Hawk [id number]
[2016-06-01] MEDS: ENOXAPARIN SODIUM 40 MG/0.4 ML SYRINGE SQ SCH (14:00)
[2016-06-01 18:06] VITALS: BP 161/72; PULSE 74; RESP 17; TEMP 97.8; O2SAT 99
[2016-06-01] MEDS: diphenhydrAMINE HCL 50 MG CAP PO PRN (22:34)
[2016-06-01] MEDS: GABAPENTIN 300 MG CAP PO SCH (22:34)
[2016-06-01] MEDS: PRAZOSIN HCL 2 MG CAP PO SCH (22:34)
[2016-06-02 06:24] VITALS: BP 138/69; PULSE 75; RESP 18; TEMP 98.5; O2SAT 93
--- NOTE | 2016-06-02 08:55 | HHI.PYPN ---
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 It appears she has also had injuries that may be job related. He became quite labile and tearful, status is also affecting his marriage his relationship with his . He somewhat vaguely denies suicidal ideation. He has been compliant with his medications. After giving a somewhat extended detailed history of various episodes of the [employer] became increasingly tearful crying morning with a fairly loud voice. Patient was given when necessary Ativan Review of Systems Except as stated in HPI: all other systems reviewed are Neg Objective Alert: Yes [place]: Person, Place, Date, Situation Mood: Calm Affect: Restricted (dysphoric) Memory Intact: Comment (intact on clinical exam) Hallucinations: Other (No AVH) Delusions: No Delusion Type: Other (No delusions) Suicidal: Ideation (no current suicidal ideation but see above) Homicidal: Ideation (no homicidal ideation) Insight/Judgment Poor Vitals/IOs Vital Signs Date Time Temp Pulse Resp B/P Pulse Ox O2 Delivery O2 Flow Rate FiO2 06/02/16 06:24 98.5 75 18 138/69 93 05/31/16 17:07 21 Intake and Output 06/01/16 06/01/16 06/02/16 08:00 16:00 00:00 Output Total 400 ml Balance -400 ml Assessment & Plan Problem List: (1) Major depressive disorder ICD Code: F32.9 Assessment & Plan Estimated LOS: days patient continues labile tearful and depressed with vaguely denying suicidal ideation Justification for Cont. Inpt. At this time patient will decompensate if place to the lower level of care Discharge Planning To be determined Request HC Surrog/Guard Advoc?: No Problem Qualifiers (1) Major depressive disorder: Qualified Code: F33.2 - Severe episode of recurrent major depressive disorder, without psychotic features Too Willis MD Jun 02, 2016 08:55
[2016-06-02] MEDS: LORazepam 0.5 MG TAB PO PRN (08:57)
[2016-06-02] MEDS: REMOVE OLD PATCH T-DERMAL SCH (09:00)
[2016-06-02] MEDS: NICOTINE 21 MG/24 HR PATCH T-DERMAL SCH (09:00)
[2016-06-02] MEDS: MAGNESIUM OXIDE 400 MG TAB PO SCH (10:38)
[2016-06-02] MEDS: BUMETANIDE 1 MG TAB PO SCH (10:38)
[2016-06-02] MEDS: LITHIUM CARBONATE 300 MG TAB PO SCH ×2 (10:39→21:21)
[2016-06-02] MEDS: sulfaSALAzine 500 MG TAB PO SCH (10:39)
[2016-06-02] MEDS: FLUoxetine HCL 20 MG CAP PO SCH (10:39)
[2016-06-02] MEDS: MAGNESIUM HYDROXIDE SUSP 30 ML CUP PO PRN (11:02)
[2016-06-02] MEDS: ENOXAPARIN SODIUM 40 MG/0.4 ML SYRINGE SQ SCH (16:01)
[2016-06-02 18:40] VITALS: BP 158/65; PULSE 73; RESP 18; TEMP 97.5; O2SAT 98
[2016-06-02] MEDS: PRAZOSIN HCL 2 MG CAP PO SCH (21:21)
[2016-06-02] MEDS: GABAPENTIN 300 MG CAP PO SCH (21:21)
--- NOTE | 2016-06-02 22:04 | HHI.PR ---
Subjective Remarks Patient seen this afternoon around 3 PM. He states he had a fall yesterday morning, got up without walker, fell backwards against the door, sliding down edge of the door, has superficial abrasion on his back. Patient reports innumerable falls over the past year, up to 10 per week, says these falls have resulted in smashing his CPAP machine to pieces twice, as well as computers, monitors, printers and copiers, he has nocked his toilet off its base, and pulled out the plumbing in his tub, all as a result of these falls. He says he has undergone extensive evaluation with neurology, as well as multiple studies at [facility] with recommendation of cognitive behavioral therapy. He said he had an EEG performed for 3 days straight, and then subsequently had a fall just after it was taken off. He denies any chest pain or palpitations with these falls, says it feels as if he is falling asleep Objective Vital Signs Date Time Temp Pulse Resp B/P Pulse Ox O2 Delivery O2 Flow Rate FiO2 06/02/16 18:40 97.5 73 18 158/65 98 06/02/16 06:24 98.5 75 18 138/69 93 I/O 06/01/16 06/01/16 06/01/16 06/02/16 06/02/16 06/02/16 07:00 15:00 23:00 07:00 15:00 23:00 Intake Total 480 ml Output Total 400 ml Balance -400 ml 480 ml Intake Oral 480 ml Output Urine Total 400 ml # Voids 2 2 Result Diagram: 05/30/16 0230 06/01/16 0630 Objective Remarks GENERAL: patient sitting up in chair. Appears comfortable. SKIN: Warm and dry.superficial abrasion 1 cm by 10 cm over left mid to lower back.no surrounding erythema. No bleeding. Scab. HEAD: Normocephalic. EYES: No scleral icterus. No injection or drainage. NECK: Supple, trachea midline. No JVD. CARDIOVASCULAR: Regular rate and rhythm without murmurs, gallops, or rubs. RESPIRATORY: Breath sounds equal bilaterally. No accessory muscle use. GASTROINTESTINAL: Abdomen soft, non-tender, nondistended. MUSCULOSKELETAL: No cyanosis. +1 bilateral lower extremity edema. BACK: Nontender without obvious deformity. No CVA tenderness. A/P Assessment and Plan 61-year-old male with a past medical history significant for PTSD, anxiety, sleep disorder, degenerative disc disease lumbar spine status post back surgery 4 including previous fusion, neuropathy, chronic back pain, previous PE and BPH who was admitted to [facility] on a voluntary basis for psychiatric evaluation for worsening depression and suicidal ideation. Hospitalist service was consulted for medical management. //Depression and suicidal ideation Management per psychiatric team //Bilateral lower extremity edema Patient's home Bumex held at time of admission likely contributing to patient 's increase in fluid retention Resume home Bumex dose 2mg daily. Patient denies previous history of CHF and denies ever having had an echocardiogram performed. Will order echo for further evaluation. Given patient's history of sedentary lifestyle and recent increase in bilateral lower x-ray swelling, will obtain Doppler studies to rule out DVT although there is a low likelihoodDopplers negative. Monitor electrolytes Appears to be stable. //Chronic back pain s/p previous implantation of pain pump PT eval/tx Continue with home sulfasalazine dose for inflammation per patient report //BPH with intermittent urinary retention requiring self cath Monitor UOP allow for self catheterization if indicated //Neuropathy continue with home Gabapentin dose //History of recurrent falls. Given the extensive damage to property, as well as history patient is given, these are most likely psychiatric in origin. We' ll request records from primary neurologist, Earnestine Padilla. Have advised patient to use his walker as instructed. //Superficial abrasion. Patient does have an injury to his back, having slid down the edge of an open door. This is a superficial abrasion, and although large should heal. We will monitor. //FAITH supplemental oxygen use at nighttime //BRBPR Likely secondary to hemorrhoids given history of intermittent opioid-induced constipation Hemoglobin and hematocrit stable monitor //DVT prophylaxis Lovenox sq Crow Wayne MD Jun 02, 2016 22:04
[2016-06-03] MEDS: LORazepam 0.5 MG TAB PO PRN (00:56)
[2016-06-03] MEDS: diphenhydrAMINE HCL 50 MG CAP PO PRN ×2 (01:11→22:13)
[2016-06-03] MEDS: ACETAMINOPHEN 325 MG TAB PO PRN ×2 (01:11→22:12)
[2016-06-03 06:25] VITALS: BP 121/58; PULSE 76; RESP 18; TEMP 98; O2SAT 92
[2016-06-03] MEDS: FLUoxetine HCL 20 MG CAP PO SCH (08:32)
[2016-06-03] MEDS: sulfaSALAzine 500 MG TAB PO SCH (08:32)
[2016-06-03] MEDS: BUMETANIDE 1 MG TAB PO SCH (08:32)
[2016-06-03] MEDS: LITHIUM CARBONATE 300 MG TAB PO SCH ×2 (08:33→20:39)
[2016-06-03] MEDS: MAGNESIUM OXIDE 400 MG TAB PO SCH (08:34)
[2016-06-03] MEDS: ALUMINUM/MAGNESIUM/SIMETH 30 ML CUP PO PRN (08:42)
[2016-06-03] MEDS: REMOVE OLD PATCH T-DERMAL SCH (09:00)
[2016-06-03] MEDS: NICOTINE 21 MG/24 HR PATCH T-DERMAL SCH (09:00)
[2016-06-03 09:55] LABS: BICARBONATE 27.1 MEQ/L (21.0-32.0)
--- NOTE | 2016-06-03 12:24 | HHI.PYPN ---
Subjective Remarks Patient was seen and case discussed with nursing. Patient has not had any more falls. He is perseverant and his various complaints about the service here including not getting double portions. Chief complaint today is insomnia. Says he doesn't feel safe outside of the hospital but denies suicidal ideation intent or plan. Compliant with medications Objective Alert: Yes [place]: Person, Place, Date, Situation Mood: Calm Affect: Blunted Memory Intact: Comment (intact on clinical exam) Hallucinations: Other (No AVH) Delusions: No Delusion Type: Other (No delusions) Suicidal: Ideation (no current suicidal ideation but see above) Homicidal: Ideation (no homicidal ideation) Insight/Judgment Fair Labs Test 06/03/16 08:13 Sodium Level 137 MEQ/L Potassium Level 4.0 MEQ/L Chloride Level 100 MEQ/L Carbon Dioxide Level 27.1 MEQ/L Anion Gap 10 MEQ/L Blood Urea Nitrogen 19 MG/DL Creatinine 0.93 MG/DL Estimat Glomerular Filtration 83 ML/MIN Rate Random Glucose 117 MG/DL Calcium Level 9.8 MG/DL Vitals/IOs Vital Signs Date Time Temp Pulse Resp B/P Pulse Ox O2 Delivery O2 Flow Rate FiO2 06/03/16 06:25 98.0 76 18 121/58 92 05/31/16 17:07 21 Intake and Output 06/02/16 06/02/16 06/03/16 08:00 16:00 00:00 Intake Total 480 ml 720 ml Balance 480 ml 720 ml Assessment & Plan Problem List: (1) Major depressive disorder ICD Code: F32.9 Assessment & Plan Increase when necessary Benadryl to 100 mg for insomnia. Justification for Cont. Inpt. Patient will decompensate in a less restrictive setting Request HC Surrog/Guard Advoc?: No Problem Qualifiers (1) Major depressive disorder: Qualified Code: F33.2 - Severe episode of recurrent major depressive disorder, without psychotic features Bogdan Alcala DO Jun 03, 2016 12:23
[2016-06-03] MEDS: ENOXAPARIN SODIUM 40 MG/0.4 ML SYRINGE SQ SCH (14:11)
[2016-06-03 15:42] VITALS: BP 198/88; PULSE 82; RESP 20; TEMP 97; O2SAT 95
[2016-06-03] MEDS ORDERED: LORazepam 2 MG/ML VIAL IM ONE (16:00)
[2016-06-03] MEDS: GABAPENTIN 300 MG CAP PO SCH (20:39)
[2016-06-03] MEDS: PRAZOSIN HCL 2 MG CAP PO SCH (20:39)
[2016-06-03 22:00] VITALS: BP 165/74
[2016-06-03] MEDS: MAGNESIUM HYDROXIDE SUSP 30 ML CUP PO PRN (22:13)
[2016-06-04 06:29] VITALS: BP 130/56; PULSE 63; RESP 18; TEMP 97.6; O2SAT 98
[2016-06-04] MEDS: REMOVE OLD PATCH T-DERMAL SCH (09:00)
[2016-06-04] MEDS: NICOTINE 21 MG/24 HR PATCH T-DERMAL SCH (09:00)
[2016-06-04] MEDS: LORazepam 0.5 MG TAB PO PRN (10:37)
[2016-06-04] MEDS: LITHIUM CARBONATE 300 MG TAB PO SCH ×2 (10:37→21:48)
[2016-06-04] MEDS: MAGNESIUM OXIDE 400 MG TAB PO SCH (10:38)
[2016-06-04] MEDS: FLUoxetine HCL 20 MG CAP PO SCH (10:39)
--- NOTE | 2016-06-04 12:35 | HHI.PYPN ---
Subjective Remarks Patient was seen and case discussed with nursing. Patient had a suicidal gesture yesterday afternoon where he tied a sheet in the cervical and wrapped it around his neck. Patient was evaluated and a one-to-one has been ordered for him since yesterday. Per her one-to-one patient has been social and interactive and bright. It is unclear if this was a genuine gesture secondary to his personality disorder. Patient is guarded about his attempt and is perseverant that it was caused by his medications not allowing him to sleep. He felt that his increase of Benadryl to 100 mg yesterday was insufficient for sleep, he says he became angry and that was the reason for his attempt. Asking me for Ambien. Psychoeducation was done about benzodiazepines, opiates and hypnotics like Ambien together. Patient appears uninterested in what medications could or could not harm him. Patient was also told it is not appropriate to get more Ativan given he is on Dilaudid. Patient is on a low dose of lithium with a pending level tomorrow. We will increase his Neurontin to 300 mg by mouth 3 times a day for anxiety. We will also add Zyprexa 10 mg daily at bedtime for chief complaint of insomnia and mood stabilization especially since he is ready on Prozac. He will continue close observations and he will continue to have a one-to-one. Patient says that he no longer has suicidal or homicidal ideation intent or plan. He has regrets and guilty feelings about the ways his life turned out but does not appear to be hopeless or helpless Objective Alert: Yes [place]: Person, Place, Date, Situation Mood: Depressed Affect: Restricted Memory Intact: Comment (intact on clinical exam) Hallucinations: Other (No AVH) Delusions: No Delusion Type: Other (No delusions) Suicidal: Ideation (denies) Homicidal: Ideation (no homicidal ideation) Insight/Judgment Fair Vitals/IOs Vital Signs Date Time Temp Pulse Resp B/P Pulse Ox O2 Delivery O2 Flow Rate FiO2 06/04/16 06:29 97.6 63 18 130/56 98 05/31/16 17:07 21 Intake and Output 06/03/16 06/03/16 06/04/16 08:00 16:00 00:00 Intake Total 1080 ml 1560 ml 720 ml Balance 1080 ml 1560 ml 720 ml Assessment & Plan Problem List: (1) Unspecified mood [affective] disorder ICD Code: F39 Assessment & Plan See history of present illness Justification for Cont. Inpt. Patient will decompensate in the less restrictive setting Request HC Surrog/Guard Advoc?: No Bogdan Alcala DO Jun 04, 2016 12:35
[2016-06-04] MEDS: BUMETANIDE 1 MG TAB PO SCH (13:48)
[2016-06-04] MEDS: sulfaSALAzine 500 MG TAB PO SCH (13:48)
[2016-06-04] MEDS: GABAPENTIN 300 MG CAP PO SCH ×2 (13:49→17:40)
[2016-06-04] MEDS: MAGNESIUM HYDROXIDE SUSP 30 ML CUP PO PRN (13:57)
[2016-06-04] MEDS: ENOXAPARIN SODIUM 40 MG/0.4 ML SYRINGE SQ SCH (14:50)
--- NOTE | 2016-06-04 14:59 | HHI.PR ---
Subjective Remarks Follow-up on patient with PTSD, anxiety, sleep disorder, depression, FAITH non CPAP compliant, degenerative disc disease lumbar spine status post back surgery 4 including previous fusion, neuropathy, chronic back pain, previous PE and BPH. Patient seen and examined today. Patient is complaining of right heel pain due to spur. He's having difficulty with ambulation. He complains of insomnia. No further falls. Denies any f/c, n/v, chest pain or abdominal pain. Patient reports some shortness of breath when lying supine. Echocardiogram done 06/01 revealed EF of 55-60% without any motion abnormalities. Objective Vitals Vital Signs Date Time Temp Pulse Resp B/P Pulse Ox O2 Delivery O2 Flow Rate FiO2 06/04/16 06:29 97.6 63 18 130/56 98 06/03/16 22:00 165/74 06/03/16 15:42 97.0 82 20 198/88 95 I/O 06/03/16 06/03/16 06/03/16 06/04/16 06/04/16 06/04/16 07:00 15:00 23:00 07:00 15:00 23:00 Intake Total 720 ml 1920 ml 720 ml 720 ml Balance 720 ml 1920 ml 720 ml 720 ml Intake Oral 720 ml 1920 ml 720 ml 720 ml # Voids 3 3 # Bowel Movements 1 Result Diagram: 06/03/16 0813 Objective Remarks GENERAL: Patient sitting up in chair in the common room eating breakfast. Appears comfortable. SKIN: Warm and dry. HEAD: Normocephalic. EYES: No scleral icterus. No injection or drainage. NECK: Supple, trachea midline. No JVD. CARDIOVASCULAR: Regular rate and rhythm without murmurs, gallops, or rubs. RESPIRATORY: Breath sounds equal bilaterally. No accessory muscle use. GASTROINTESTINAL: Abdomen soft, non-tender, nondistended. MUSCULOSKELETAL: No cyanosis. Trace lower extremity edema. BACK: Nontender without obvious deformity. No CVA tenderness. Medications and IVs Current Medications Medications (Trade) Dose Ordered Sig/Reinier Route Start Time Stop Time Status Last Admin (PROzac) 80 mg DAILY PO 05/30/16 09:00 06/04/16 10:39 (Minipress) 2 mg HS PO 05/30/16 21:00 06/03/16 20:39 (Azulfidine) 500 mg DAILY PO 05/30/16 09:00 06/04/16 13:48 (Mag-Ox) 400 mg DAILY PO 05/30/16 10:00 06/04/16 10:38 (Ativan) 0.5 mg Q12H PRN PO 05/30/16 08:45 06/04/16 10:37 (Ativan Inj) 0.5 mg Q12H PRN IM 05/30/16 08:45 (Tylenol) 650 mg Q4H PRN PO 05/30/16 08:45 06/03/16 22:12 (Milk Of Magnesia Liq) 30 ml DAILY PRN PO 05/30/16 08:45 06/04/16 13:57 (Mag-Al Plus Susp Liq) 30 ml Q6H PRN PO 05/30/16 08:45 06/03/16 08:42 (Habitrol 21 Mg Patch.24 Hr) 1 patch DAILY T-DERMAL 05/30/16 09:00 (Cogentin) 1 mg Q12H PRN PO 05/30/16 08:45 (Cogentin Inj) 1 mg Q12H PRN IM 05/30/16 08:45 Miscellaneous Information 1 DAILY T-DERMAL 05/30/16 09:00 (Bumetanide) 2 mg DAILY PO 05/31/16 14:00 06/04/16 13:48 (Lovenox Inj) 40 mg Q24H SQ 05/31/16 14:00 06/03/16 14:11 (Lithotabs) 150 mg Q12HR PO 06/01/16 09:00 06/04/16 10:37 (Pill Splitter) 1 ea UNSCH PRN OTHER 06/01/16 08:30 (Benadryl) 100 mg HS PRN PO 06/03/16 12:30 06/03/16 22:13 (ZyPREXA) 10 mg HS PO 06/04/16 21:00 (Neurontin) 300 mg TID PO 06/04/16 13:00 06/04/16 13:49 A/P Assessment and Plan 61-year-old male with a past medical history significant for PTSD, anxiety, sleep disorder, degenerative disc disease lumbar spine status post back surgery 4 including previous fusion, neuropathy, chronic back pain, previous PE and BPH who was admitted to [facility] on a voluntary basis for psychiatric evaluation for worsening depression and suicidal ideation. Hospitalist service was consulted for medical management. //Depression and suicidal ideation //Insomnia Management per psychiatric team //Bilateral lower extremity edema Improving Patient's home Bumex held at time of admission likely contributing to patient 's increase in fluid retention Resume home Bumex dose 2mg daily. Patient denies previous history of CHF and denies ever having had an echocardiogram performed. Echo obtained showing EF of 55-60%.. Given patient's history of sedentary lifestyle and recent increase in bilateral lower x-ray swelling, will obtain Doppler studies to rule out DVT although there is a low likelihoodDopplers negative. Monitor electrolytes Appears to be stable. //Chronic back pain s/p previous implantation of pain pump PT eval/tx - related 50 feet with physical therapy using rolling walker. PT recommends continued therapy following discharge. Continue with home sulfasalazine dose for inflammation per patient report //BPH with intermittent urinary retention requiring self cath Monitor UOP allow for self catheterization if indicated //Neuropathy continue with home Gabapentin dose //History of recurrent falls. Given the extensive damage to property, as well as history patient is given, these are most likely psychiatric in origin. We' ll request records from primary neurologist, Earnestine Padilla. Have advised patient to use his walker as instructed. //Superficial abrasion. Patient does have an injury to his back, having slid down the edge of an open door. This is a superficial abrasion, and although large should heal. We will monitor. Obtain orthostatic blood pressure measurements. //FAITH supplemental oxygen use at nighttime //Right heel pain secondary to spur Podiatry consult //BRBPR Likely secondary to hemorrhoids given history of intermittent opioid-induced constipation Hemoglobin and hematocrit stable monitor //DVT prophylaxis Lovenox sq Discussed with nursing staff, patient and Dr. Wayne. Zeynep Perez Jun 04, 2016 14:59
--- NOTE | 2016-06-04 15:48 | PD.CONS ---
History of Present Illness Service Podiatry Consult Requested By Chris/Tone Reason for Consult Heel spur Primary Care Physician Ana Fitzpatrick MD Diagnoses: History of Present Illness This is not an infection, emergency, or surgical matter and can be handled and worked up as an outpatient. Not appropriate inpatient consultation. Consultation canceled. Follow up with cycle counter on insurance plan for work up and to discuss treatment options. Past Family Social History Allergies: Coded Allergies: No Known Allergies (Unverified , 05/29/16) Physical Exam Vital Signs Vital Signs Date Time Temp Pulse Resp B/P Pulse Ox O2 Delivery O2 Flow Rate FiO2 06/04/16 06:29 97.6 63 18 130/56 98 06/03/16 22:00 165/74 Physical Exam GENERAL: This is a well-nourished, well-developed patient, in no apparent distress. SKIN: No rashes, ecchymoses or lesions. Cool and dry. HEAD: Atraumatic. Normocephalic. No temporal or scalp tenderness. EYES: Pupils equal round and reactive. Extraocular motions intact. No scleral icterus. No injection or drainage. ENT: Nose without bleeding, purulent drainage or septal hematoma. Throat without erythema, tonsillar hypertrophy or exudate. Uvula midline. Airway patent. NECK: Trachea midline. No JVD or lymphadenopathy. Supple, nontender, no meningeal signs. CARDIOVASCULAR: Regular rate and rhythm without murmurs, gallops, or rubs. RESPIRATORY: Clear to auscultation. Breath sounds equal bilaterally. No wheezes , rales, or rhonchi. GASTROINTESTINAL: Abdomen soft, non-tender, nondistended. No hepato-splenomegaly , or palpable masses. No guarding. MUSCULOSKELETAL: Extremities without clubbing, cyanosis, or edema. No joint tenderness, effusion, or edema noted. No calf tenderness. Negative Homans sign bilaterally. NEUROLOGICAL: Awake and alert. Cranial nerves II through XII intact. Motor and sensory grossly within normal limits. Five out of 5 muscle strength in all muscle groups. Normal speech. Result Diagram: 06/03/16 0813 Hamlet Reyes DPM Jun 04, 2016 15:48
[2016-06-04 18:32] VITALS: BP_SYST 130; BP_SYST 150; BP_DIAS 57; BP_DIAS 65; BP_DIAS 78
[2016-06-04] MEDS ORDERED: OLANZapine 10 MG TAB PO SCH (21:00)
[2016-06-04 21:29] VITALS: BP 100/70; PULSE 84; TEMP 97.5; O2SAT 94
[2016-06-04] MEDS: PRAZOSIN HCL 2 MG CAP PO SCH (21:47)
[2016-06-04] MEDS: diphenhydrAMINE HCL 50 MG CAP PO PRN (21:47)
[2016-06-05 06:05] VITALS: BP 134/67; PULSE 72; RESP 19; TEMP 98.2; O2SAT 96
[2016-06-05] MEDS: NICOTINE 21 MG/24 HR PATCH T-DERMAL SCH (09:00)
[2016-06-05] MEDS: REMOVE OLD PATCH T-DERMAL SCH (09:00)
[2016-06-05] MEDS: sulfaSALAzine 500 MG TAB PO SCH (09:23)
[2016-06-05] MEDS: BUMETANIDE 1 MG TAB PO SCH (09:23)
[2016-06-05] MEDS: MAGNESIUM OXIDE 400 MG TAB PO SCH (09:23)
[2016-06-05] MEDS: GABAPENTIN 300 MG CAP PO SCH ×3 (09:23→18:00)
[2016-06-05] MEDS: FLUoxetine HCL 20 MG CAP PO SCH (09:24)
[2016-06-05 09:29] LABS: BICARBONATE 28.3 MEQ/L (21.0-32.0); POTASSIUM 3.9 MEQ/L (3.5-5.1)
[2016-06-05] MEDS: LITHIUM CARBONATE 300 MG TAB PO SCH ×2 (13:10→20:58)
[2016-06-05] MEDS: ENOXAPARIN SODIUM 40 MG/0.4 ML SYRINGE SQ SCH (15:17)
--- NOTE | 2016-06-05 16:15 | HHI.PYPN ---
Subjective Remarks Patient seen and examined with nurse. Chart reviewed. I note that the patient endeavored to hang himself over the weekend. Case discussed with nursing staff who reports that there has been no further evidence of self injury although the patient is somewhat querulous. On my examination today, the patient admits that he endeavored to hang himself because he was acting out because the weekend rounding physician didn't give him his preferred hypnotic. He denies any suicidal ideation at this time. Mood seems reactive to the circumstance. He does feel like the lithium is helping somewhat stabilize his mood and the Zyprexa likewise is helping with sleep. Overall presentation remains fairly personality disordered. Denies side effects from medications. Review of Systems ROS Limitations: Poor Historian Except as stated in HPI: all other systems reviewed are Neg Objective Alert: Yes [place]: Person, Place, Date, Situation Mood: Calm Affect: Blunted Memory Intact: Comment (intact) Hallucinations: Other (No AVH) Delusions: No Delusion Type: Other (no evident delusions) Suicidal: Ideation (denies suicidal ideation, intent or plan) Homicidal: Ideation (no homicidal ideation) Insight/Judgment Fair Remarks No abnormal motor movements noted. Thought process linear. Speech within normal limits for rate, tone and volume. Labs Test 06/05/16 07:15 Sodium Level 136 MEQ/L Potassium Level 3.9 MEQ/L Chloride Level 97 MEQ/L Carbon Dioxide Level 28.3 MEQ/L Anion Gap 11 MEQ/L Blood Urea Nitrogen 22 MG/DL Creatinine 1.01 MG/DL Estimat Glomerular Filtration 75 ML/MIN Rate Random Glucose 97 MG/DL Calcium Level 9.4 MG/DL [employer] Level 0.3 MEQ/L Labs reviewed. Vitals/IOs Vital Signs Date Time Temp Pulse Resp B/P Pulse Ox O2 Delivery O2 Flow Rate FiO2 06/05/16 06:05 98.2 72 19 134/67 96 Intake and Output 06/04/16 06/04/16 06/05/16 08:00 16:00 00:00 Intake Total 240 ml 1200 ml 600 ml Balance 240 ml 1200 ml 600 ml Assessment & Plan Problem List: (1) Unspecified mood [affective] disorder ICD Code: F39 (2) Mixed personality disorder Assessment & Plan: Cluster B/C ICD Code: F60.89 Assessment & Plan Titrate Zyprexa to 15 mg at bedtime. Continue lithium as ordered. Continue other psychotropics as ordered. Transfer to the high acuity inpatient unit for closer observation. Patient will be placed into a camera room. I will continue the one-to-one order, but at this point it is more because the patient has a history of disregarding nursing instructions not to get out of bed with consequent falls. Continue other medications and care as ordered. Justification for Cont. Inpt. Monitoring for impairments in safety. Medication changes in process. Discharge Planning Pending stabilization. I anticipate the patient will require an additional 3 or perhaps 4 inpatient hospital days. Request HC Surrog/Guard Advoc?: No Ko Rasheed MD Jun 05, 2016 16:15
[2016-06-05] MEDS: PRAZOSIN HCL 2 MG CAP PO SCH (20:58)
[2016-06-05] MEDS: diphenhydrAMINE HCL 50 MG CAP PO PRN (20:59)
[2016-06-06 06:00] VITALS: BP 119/61; PULSE 73; RESP 18; TEMP 97.3; O2SAT 94
[2016-06-06] MEDS: sulfaSALAzine 500 MG TAB PO SCH (08:48)
[2016-06-06] MEDS: FLUoxetine HCL 20 MG CAP PO SCH (08:49)
[2016-06-06] MEDS: LITHIUM CARBONATE 300 MG TAB PO SCH ×2 (08:49→21:25)
[2016-06-06] MEDS: GABAPENTIN 300 MG CAP PO SCH ×3 (08:49→18:00)
[2016-06-06] MEDS: MAGNESIUM OXIDE 400 MG TAB PO SCH (08:50)
[2016-06-06] MEDS: BUMETANIDE 1 MG TAB PO SCH (08:50)
[2016-06-06] MEDS: NICOTINE 21 MG/24 HR PATCH T-DERMAL SCH (08:50)
[2016-06-06] MEDS: REMOVE OLD PATCH T-DERMAL SCH (09:00)
--- NOTE | 2016-06-06 11:13 | HHI.PYPN ---
Subjective Remarks Patient seen and examined with counselor and nurse. Chart reviewed. Case discussed with nursing staff, counselor and occupational therapist in treatment team. Per nursing staff, the patient is now denying suicidal ideation. He is noted to be somewhat medication seeking. On my examination today, the patient remains with a one-to-one. He is in a camera room on the high acuity unit. He denies any suicidal ideation, intent or plan. He says that he finally slept well last night. He describes vague hallucinations of colors on his shirt. Mood remains somewhat dysphoric. Denies side effects from medications. With the patient's permission, I have obtained returned a call to his . We discussed patient's case, including patient's hanging acting out gesture over the weekend. She agrees that patient has long-standing personality dysfunction and has heard from his family that "he has always been this way." We discuss the importance of psychotherapy in the treatment of personality dysfunction. We discussed that medications are less efficacious for personality problems. I recommend securing the patient's home all potential means of self-harm. She thanks me for the call. Review of Systems Except as stated in HPI: all other systems reviewed are Neg Objective Alert: Yes [place]: Person, Place, Date Mood: Calm Affect: Blunted Memory Intact: Comment (intact) Hallucinations: Other (Denies AVH currently; does report VH yesterday as noted above) Delusions: No Delusion Type: Other (no evident delusions) Suicidal: Ideation (Denies SI) Homicidal: Ideation (no homicidal ideation) Insight/Judgment Fair Remarks No abnormal motor movements noted. Thought process linear. Labs Labs reviewed. Vitals/IOs Vital Signs Date Time Temp Pulse Resp B/P Pulse Ox O2 Delivery O2 Flow Rate FiO2 06/06/16 06:00 97.3 73 18 119/61 94 Intake and Output 06/05/16 06/05/16 06/06/16 08:00 16:00 00:00 Intake Total 0 ml 1540 ml Balance 0 ml 1540 ml Assessment & Plan Problem List: (1) Unspecified mood [affective] disorder ICD Code: F39 (2) Mixed personality disorder ICD Code: F60.89 Assessment & Plan Titrate Zyprexa to 20 mg at bedtime for additional mood stabilization and to further help with sleep. Continue other psychotropics as ordered. Continue to monitor on the high acuity unit. Continue one-to-one although again this is chiefly for fall risk. Continue other medications include care as ordered. Justification for Cont. Inpt. Medication changes in process. Discharge Planning Anticipate discharge home or Sunday barring some clinical deterioration. I've asked the counselor to make a psychotherapeutic referral in addition to a general psychiatric referral as I believe this is the best opportunity for improving patient's personality issues. Request HC Surrog/Guard Advoc?: No Ko Rasheed MD Jun 06, 2016 11:13
[2016-06-06] MEDS: ENOXAPARIN SODIUM 40 MG/0.4 ML SYRINGE SQ SCH (13:14)
[2016-06-06] MEDS: MAGNESIUM HYDROXIDE SUSP 30 ML CUP PO PRN ×2 (13:17→22:00)
[2016-06-06 17:38] VITALS: BP 152/68; PULSE 69; RESP 19; TEMP 97.8; O2SAT 96
[2016-06-06] MEDS: OLANZapine 10 MG TAB PO SCH (21:00)
[2016-06-06] MEDS: PRAZOSIN HCL 2 MG CAP PO SCH (21:25)
[2016-06-06] MEDS: diphenhydrAMINE HCL 50 MG CAP PO PRN (22:00)
[2016-06-06] MEDS: LORazepam 0.5 MG TAB PO PRN (22:00)
[2016-06-07 05:52] VITALS: BP 161/92; PULSE 58; RESP 17; TEMP 97.2; O2SAT 94
[2016-06-07] MEDS: FLUoxetine HCL 20 MG CAP PO SCH (08:44)
[2016-06-07] MEDS: GABAPENTIN 300 MG CAP PO SCH ×3 (08:44→18:29)
[2016-06-07] MEDS: LITHIUM CARBONATE 300 MG TAB PO SCH ×2 (08:45→21:45)
[2016-06-07] MEDS: REMOVE OLD PATCH T-DERMAL SCH (08:45)
[2016-06-07] MEDS: NICOTINE 21 MG/24 HR PATCH T-DERMAL SCH (08:45)
[2016-06-07] MEDS: MAGNESIUM OXIDE 400 MG TAB PO SCH (08:45)
[2016-06-07] MEDS: sulfaSALAzine 500 MG TAB PO SCH (11:10)
[2016-06-07] MEDS: BUMETANIDE 1 MG TAB PO SCH (11:11)
--- NOTE | 2016-06-07 12:01 | HHI.PYPN ---
Subjective Remarks Patient seen and examined. Chart reviewed. I have reviewed records from patient's sleep medicine physician that have been scanned into our electronic medical record. Case discussed with nursing staff who reports patient is demanding and entitled. On my examination today, the patient is somewhat fixated on minutiae. He describes his mood, however, as happy. He says that any suicidal thoughts are "way back in my mind," and he denies any active suicidal ideation. He reports that he slept well last night, although I see that he utilized Ativan again last night, and I have cautioned him against doing so as he will not be leaving with a prescription for this medication in light of his chemical dependency history. Denies side effects from medications. No other issues noted. Review of Systems Except as stated in HPI: all other systems reviewed are Neg Objective Alert: Yes [place]: Person, Place, Date Mood: Calm Affect: Appropriate Memory Intact: Comment (remains intact) Hallucinations: Other (No AVH) Delusions: No Delusion Type: Other (No delusions) Suicidal: Ideation (Denies active SI, intent, plan) Homicidal: Ideation (No HI) Insight/Judgment Fair Remarks Thought process linear. Speech within normal limits for rate, tone and volume. Grooming and hygiene fair. Labs Labs reviewed. No new labs. Vitals/IOs Vital Signs Date Time Temp Pulse Resp B/P Pulse Ox O2 Delivery O2 Flow Rate FiO2 06/07/16 05:52 97.2 58 17 161/92 94 Intake and Output 06/06/16 06/06/16 06/07/16 08:00 16:00 00:00 Intake Total 240 ml 600 ml Balance 240 ml 600 ml Assessment & Plan Problem List: (1) Unspecified mood [affective] disorder ICD Code: F39 (2) Mixed personality disorder ICD Code: F60.89 Assessment & Plan Continue Zyprexa, lithium, Prozac and prazosin as ordered. Check a BMP to ensure renal function is stable on lithium therapy. Continue 1:1 for secondary to fall risk. Continue to monitor on the inpatient unit. Continue other medications include as ordered. Justification for Cont. Inpt. Final discharge planning Discharge Planning Anticipate discharge tomorrow, . Patient is in agreement with the discharge plan. Request HC Surrog/Guard Advoc?: No Ko Rasheed MD Jun 07, 2016 12:01
[2016-06-07] MEDS: ENOXAPARIN SODIUM 40 MG/0.4 ML SYRINGE SQ SCH (15:46)
--- NOTE | 2016-06-07 16:28 | HHI.PR ---
Subjective Remarks Follow-up on patient with PTSD, anxiety, sleep disorder, depression, FAITH non CPAP compliant, degenerative disc disease lumbar spine status post back surgery 4 including previous fusion, neuropathy, chronic back pain, previous PE and BPH , bilateral lower extremity edema. Patient seen and examined today. Continues to complain of bilateral lower extremity edema, and right heel spur. Patient has been having difficulty with ambulation, ambulates by pushing a Mary Ellen chair. Continues to do self-catheterization, urine output has been adequate 800 mL S/P per catheterization. Denies any dysuria, hematuria. Otherwise, denies SOB/ dyspnea. Denies chest pain, palpitations, headaches, dizziness. Denies fevers, chills, n/v/d. Objective Vitals Vital Signs Date Time Temp Pulse Resp B/P Pulse Ox O2 Delivery O2 Flow Rate FiO2 06/07/16 05:52 97.2 58 17 161/92 94 06/06/16 17:38 97.8 69 19 152/68 96 I/O 06/06/16 06/06/16 06/06/16 06/07/16 06/07/16 06/07/16 07:00 15:00 23:00 07:00 15:00 23:00 Intake Total 240 ml 600 ml Balance 240 ml 600 ml Intake Oral 240 ml 600 ml # Voids 1 1 # Bowel Movements 0 Result Diagram: 06/05/16 0715 Imaging Last Impressions Thoracic Spine CT 06/01/16 0000 Signed Impressions: Service Date/Time: May 06:42 - CONCLUSION: 1. No acute bony fracture. 2. Diffuse primary bony degenerative type changes. Aldo Jacobson MD Lumbar Spine CT 06/01/16 0000 Signed Impressions: Service Date/Time: May 06:42 - CONCLUSION: 1. No acute bony fracture. 2. Postsurgical changes characteristic of a laminectomy and fusion from L2-S1 3. Primary bony degenerative changes, disc degeneration and disc space narrowing at multiple levels. Aldo Jacobson MD Cervical Spine CT 06/01/16 0000 Signed Impressions: Service Date/Time: May 06:38 - CONCLUSION: 1. No acute bony fracture. 2. Moderate diffuse primary bony degenerative changes, disc degeneration and disc space narrowing at multiple levels. 3. Broad-based bulge and a disc osteophyte complex at C3-4. Aldo Jacobson MD Lower Extremity Ultrasound 05/31/16 0000 Signed Impressions: Service Date/Time: Tuesday, May 31, 2016 18:23 - CONCLUSION: Normal examination. Andrea Kirby Jr., MD Hip and Pelvis X-Ray 05/30/16 0000 Signed Impressions: Service Date/Time: Monday, May 30, 2016 19:50 - CONCLUSION: 1. Moderate osteoarthritis of the bilateral hips. Joaquín Hawkins MD Objective Remarks GENERAL: This is a well-nourished, well-developed patient, in no apparent distress. HEENT: Normocephalic. Pupils equal round and reactive. Nose without bleeding. Airway patent. NECK: Trachea midline. No JVD. Supple. CARDIOVASCULAR: Regular rate and rhythm without murmurs, gallops, or rubs. RESPIRATORY: Clear to auscultation. Breath sounds equal bilaterally. No wheezes , rales, or rhonchi. GASTROINTESTINAL: Abdomen soft, non-tender, nondistended. Bowel Sounds normoactive x4. MUSCULOSKELETAL: Extremities without clubbing, cyanosis, BLE +1 edema. Right heel spur positive. NEUROLOGICAL: Awake and alert. Oriented x 3. No focal neuro deficit. HERNANDEZ. Normal speech. A/P Problem List: (1) Mixed personality disorder ICD Code: F60.89 Status: Acute (2) HTN (hypertension) ICD Code: I10 Status: Acute Assessment and Plan 61-year-old male with a past medical history significant for PTSD, anxiety, sleep disorder, degenerative disc disease lumbar spine status post back surgery 4 including previous fusion, neuropathy, chronic back pain, previous PE and BPH who was admitted to [facility] [address] on a voluntary basis for psychiatric evaluation for worsening depression and suicidal ideation. Hospitalist service was consulted for medical management. Depression and suicidal ideation Insomnia Management per psychiatric team Bilateral lower extremity edema Improving Resume home Bumex dose 2mg daily. Patient denies previous history of CHF and denies ever having had an echocardiogram performed. Echo obtained showing EF of 55-60%.. Given patient's history of sedentary lifestyle and recent increase in bilateral lower x-ray swelling US Doppler studies negative for DVT Monitor electrolytes Appears to be stable. Chronic back pain s/p previous implantation of pain pump PT eval/tx - related 50 feet with physical therapy using rolling walker. PT recommends continued therapy following discharge. Continue with home sulfasalazine dose for inflammation per patient report BPH with intermittent urinary retention requiring self cath Monitor UOP allow for self catheterization if indicated Neuropathy continue with home Gabapentin dose History of recurrent falls. Given the extensive damage to property, as well as history patient is given, these are most likely psychiatric in origin. We'll request records from primary neurologist, Earnestine Padilla. Have advised patient to use his walker as instructed. Superficial abrasion. Patient does have an injury to his back, having slid down the edge of an open door. This is a superficial abrasion, and although large should heal. We will monitor. Obtain orthostatic blood pressure measurements. FAITH supplemental oxygen use at nighttime Right heel pain secondary to spur Podiatry consult as an outpatient BRBPR Likely secondary to hemorrhoids given history of intermittent opioid-induced constipation Hemoglobin and hematocrit stable monitor DVT prophylaxis Lovenox sq Stable from Hospitalist standpoint. We will sign off. Reconsult as needed. Follow-up with PCP Dr. Viktoria Fitzpatrick Written by Roselyn Fletcher, acting as scribe for Dr. Nelson on 06/07/16 at 16: 27. This note was transcribed by scribe [SINDY Bernard]. I, Dr. Dinh Nelson personally performed the history, physical exam, and medical decision making; and confirmed the accuracy of the information in the transcribed note. Authenticated by Dr. Dinh Nelson on 06/07/16 at 17:29. Roselyn Wagner Jun 07, 2016 16:28 Dinh Nelson MD Jun 07, 2016 17:30
[2016-06-07 16:38] LABS: BICARBONATE 32.1 MEQ/L (21.0-32.0); POTASSIUM 3.6 MEQ/L (3.5-5.1)
[2016-06-07 18:41] VITALS: BP 180/92; PULSE 74; RESP 18; TEMP 97.7; O2SAT 93
[2016-06-07] MEDS: OLANZapine 10 MG TAB PO SCH (21:45)
[2016-06-07] MEDS: PRAZOSIN HCL 2 MG CAP PO SCH (21:45)
[2016-06-07] MEDS: LORazepam 0.5 MG TAB PO PRN (21:45)
[2016-06-08 05:32] VITALS: BP 126/56; PULSE 70; RESP 17; TEMP 97.8; O2SAT 94
[2016-06-08] MEDS: FLUoxetine HCL 20 MG CAP PO SCH (08:59)
[2016-06-08] MEDS: LITHIUM CARBONATE 300 MG TAB PO SCH (09:00)
[2016-06-08] MEDS: sulfaSALAzine 500 MG TAB PO SCH (09:00)
[2016-06-08] MEDS: MAGNESIUM OXIDE 400 MG TAB PO SCH (09:00)
[2016-06-08] MEDS: NICOTINE 21 MG/24 HR PATCH T-DERMAL SCH (09:00)
[2016-06-08] MEDS: REMOVE OLD PATCH T-DERMAL SCH (09:00)
[2016-06-08] MEDS: GABAPENTIN 300 MG CAP PO SCH ×2 (09:00→13:06)
[2016-06-08] MEDS ORDERED: ZYPR20TA PO (11:52)
[2016-06-08] MEDS ORDERED: LITH300T3 PO (11:52)
--- NOTE | 2016-06-08 11:52 | HHI.DS ---
Psychiatry Discharge Summary Inpatient Psychiatric care?: Yes Advance Directive: No Reason Not Provided: NONE Mental Health AdvanceDirective: No Health Care Proxy: No Admission Admission Date May 30, 2016 at 08:29 Admission Diagnosis: (1) Major depressive disorder ICD Code: F32.9 Brief History Mr. Tidwell is a 61-year-old male with a reported history of posttraumatic stress disorder and sleep disorder who presents on a voluntary basis for psychiatric evaluation. Reviewing our electronic medical record, I note that this is patient's first visit to [facility]. Patient seen and examined. Chart reviewed. Case discussed with nurse in the J- pod. Patient's is at the bedside. On my examination today, the patient reports that he has been struggling with sleep disorder for the last 20 years or so. He reports that he will go for 3 days without sleep during which she feels quite fatigued and then "crash" and sleep for 3 or 4 hours. He feels quite fatigued when he goes without sleep. He has seen sleep specialists in the past and has had PSG's. From what I can discern from his narrative, he has been diagnosed with some degree of central sleep apnea and decreased REM sleep. He is prescribed PAP therapy but is reportedly nonadherent with it. Patient reports that he has been feeling depressed over the last year or so. Concentration is poor. Energy level is low. Anhedonia present. Irritability present. He reports that within the last few weeks he has been feeling suicidal although he does not articulate a specific plan or intent at this time. No hypomanic or manic symptoms. Denies audiovisual hallucinations except possibly some hypnagogic and hypnopompic hallucinations. No evident delusions. He describes vivid dreams but not nightmares per se. Possibly some hyperarousal but no reported avoidance. The remainder of the psychiatric ROS is negative. Past psychiatric history: Patient reports a prior diagnosis of PTSD. He reports that he has been out of psychiatric care for 10 months but has previously seen Marlyn Orlando and Julia. He reports that he was psychiatrically admitted in 1995 with opiate withdrawal. He denies any history of suicide attempts. ROS: Patient describes somnambulism with falls during sleep. He also reports violent outbursts during sleep. Tobacco Use In Past 30 Days: No Tobacco Past 30 Days Alcohol Use: Never Hospital Course Patient was admitted to a locked, inpatient psychiatric unit. Appropriate precautions were in place throughout patient's hospital stay. A general medical consultation was obtained. Patient was seen and examined daily on the unit by psychiatry and also visited by counselor. Medications were adjusted. Patient tolerated medication changes well without side effects. Patient had improvement in his presenting psychiatric symptomatology. Patient did have an episode towards the beginning of his hospital stay in which he acted out and placed a ligature around his neck when he was not given the hypnotics that he wanted but otherwise there was no evidence of any suicidality or homicidality on the inpatient unit. Patient was placed with a one-to-one and ultimately transferred to the high acuity unit after this transpired. I obtained collateral from patient's and recommended that she secure the home of any means of harm to self/others on discharge. I also recommended that she secure his medications. On the day of discharge: Patient seen and examined with counselor. Chart reviewed. Case discussed with nursing staff who reports the patient has been no behavioral problem. On my examination today, the patient is in good spirits. He is requesting discharge from the inpatient psychiatric unit. He denies any suicidal or homicidal ideation, intent or plan on direct questioning. Mood is improved versus admission. No depressive or hypomanic/ manic symptoms at this time. No audiovisual hallucinations. No evident delusions. He reports that he slept well last night. Patient denies side effects from medications besides some mild dry mouth, and I have recommended that he used Biotene mouthwash and sugar-free hard candies for this. No physical complaints. Weighing the acute, chronic, and protective factors and based on the available evidence, I conservation officer to a reasonable degree of medical certainty that the patient is at low imminent risk of harm to self or others from a mental illness as defined under the Frank act and his level of function is adequate for outpatient care. Consequently, the patient does not meet criteria for involuntary psychiatric hospitalization at this time. I do suspect that there is a not insignificant component of chronic risk for harm to self/others related to his underlying mixed cluster B/C personality structure, but this risk would not be further ameliorated by a longer inpatient psychiatric hospital stay. Given that the patient does not meet criteria for involuntary psychiatric hospitalization and given that he is requesting discharge from the inpatient psychiatric unit today, I must discharge him from the inpatient unit today. Patient is to follow-up psychiatrically as arranged by counselor. Patient is also to follow-up with primary care. I have counseled the patient regarding warning signs for me to return to the psychiatric emergency room general safety plan. Patient reports that he has an adequate supply of psychotropics at home except for the new/changed medications , namely the Zyprexa and lithium. I reviewed the risks and benefits of medications and in particular reiterated the cautioned to stay well hydrated while on lithium therapy. Results Blood Pressure 126 / 56 Vital Signs Date Time Temp Pulse Resp B/P Pulse Ox O2 Delivery O2 Flow Rate FiO2 06/08/16 05:32 97.8 70 17 126/56 94 Laboratory Tests Test 06/07/16 16:11 Carbon Dioxide Level 32.1 MEQ/L (21.0-32.0) Estimat Glomerular Filtration 81 ML/MIN (>89) Rate Random Glucose 116 MG/DL (74-106) Laboratory Results Test 06/05/16 07:15 [place] Level 0.3 MEQ/L (0.5-1.5) Summary of Procedures None done Imaging Last Impressions Thoracic Spine CT 06/01/16 0000 Signed Impressions: Service Date/Time: May 06:42 - CONCLUSION: 1. No acute bony fracture. 2. Diffuse primary bony degenerative type changes. Aldo Jacobson MD Lumbar Spine CT 06/01/16 0000 Signed Impressions: Service Date/Time: May 06:42 - CONCLUSION: 1. No acute bony fracture. 2. Postsurgical changes characteristic of a laminectomy and fusion from L2-S1 3. Primary bony degenerative changes, disc degeneration and disc space narrowing at multiple levels. Aldo Jacobson MD Cervical Spine CT 06/01/16 0000 Signed Impressions: Service Date/Time: May 06:38 - CONCLUSION: 1. No acute bony fracture. 2. Moderate diffuse primary bony degenerative changes, disc degeneration and disc space narrowing at multiple levels. 3. Broad-based bulge and a disc osteophyte complex at C3-4. Aldo Jacobson MD Lower Extremity Ultrasound 05/31/16 0000 Signed Impressions: Service Date/Time: Tuesday, May 31, 2016 18:23 - CONCLUSION: Normal examination. Andrea Kirby Jr., MD Hip and Pelvis X-Ray 05/30/16 0000 Signed Impressions: Service Date/Time: Monday, May 30, 2016 19:50 - CONCLUSION: 1. Moderate osteoarthritis of the bilateral hips. Joaquín Hawkins MD Pending results at discharge: No Medications # of Antipsychotic meds at D/C: 1 Approp Antipsych med options 1 - Minimum of three failed multiple trials of monotherapy. 2 - Documented plan to taper to monotherapy due to previous use of multiple meds OR cross-taper in progress at D/C. 3 - Documentation of augmentation of Clozapine. 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 He is well groomed. He is maintaining basic hygiene. He is awake and alert and oriented 3. No abnormal motor movements noted. Speech is within normal limits for rate, tone and volume. Language and fund of knowledge seem average. Mood is fair and affect is full and reactive. Thought process linear. No loosening of associations. No evident delusions. Denies suicidal or homicidal ideation, intent or plan. Insight and judgment are fair. Pt Condition on Discharge: Stable Discharge Disposition: Discharge Home Discharge Instructions Diet Instructions: As Tolerated, No Restrictions Activities you can perform: Weight Bearing as Reji Scheduled Appointment: [facility] Appointment Date: June 14, 2016 Appointment Time: 7:30am New Medications: Olanzapine (Zyprexa) 20 Mg Tab 20 MG PO HS Mental Health Days 15 Ref 1 TAB [place] Carbonate ([place] Carbonate) 300 Mg Tab 150 MG PO Q12HR Mental Health Days 15 Ref 1 TAB Continued Medications: Alprazolam (Alprazolam) 1 Mg Tab 1 MG PO Q6H PRN ANXIETY Ref 0 TAB Bumetanide (Bumetanide) 2 Mg Tab 2 MG PO Ref 0 TAB Cholecalciferol (Vitamin D-3) 1,000 Unit Cap Fluoxetine (Fluoxetine) 60 Mg Tab 80 MG PO DAILY #30 Ref 0 TAB Gabapentin (Gabapentin) 300 Mg Cap 300 MG PO HS #30 Ref 0 CAP Magnesium (Magnesium) 500 Mg Tab 500 MG PO DAILY Nutritional Supplement Ref 0 TAB Prasterone (Dhea) 25 Mg Cap Prazosin (Prazosin) 2 Mg Cap 2 MG PO HS Blood Pressure Management #60 Ref 0 CAP Sulfasalazine (Sulfasalazine) 500 Mg Tab 500 MG PO DAILY #120 Ref 0 TAB ([Hydromorphone Pump]) 8.402 DAILY Discontinued Medications: Olanzapine (Zyprexa) 2.5 Mg Tab 5 PO BID #60 Ref 0 TAB Discharge Time <= 30 minutes Discharge/Advance Care Plan Health Problems: (1) Unspecified mood [affective] disorder (2) Mixed personality disorder Goals to promote your health * To prevent worsening of your condition and complications * To maintain your health at the optimal level Directions to meet your goals Take your medications as prescribed Follow your dietary instruction Follow activity as directed Keep your appointments as scheduled Take your immunizations and boosters as scheduled If your symptoms worsen call your PCP, if no PCP go to Urgent Care Center or Emergency Room For 04/09 questions related to your inpatient stay or results of tests pending at discharge, please contact Dr. Ko Rasheed at Smoking is Dangerous to Your Health. Avoid second hand smoking Problem Qualifiers (1) Major depressive disorder: Qualified Code: F33.2 - Severe episode of recurrent major depressive disorder, without psychotic features Ko Rasheed MD Jun 08, 2016 11:52
[2016-06-08] MEDS: ENOXAPARIN SODIUM 40 MG/0.4 ML SYRINGE SQ SCH (14:00)
== END 2016-06-08 16:30 | disposition home or self-care (01) | DRG 885 ==
LOC: NEPC 22:20 → NEDA 05-30 08:29 → H260 05-30 10:45 → H250 06-01 22:37 → H270 06-05 17:44
PROVIDERS: ADMIT Psychiatry & Neurology Psychiatry; ATTEND Psychiatry & Neurology Psychiatry
DX: F33.2 Major depressive disorder, recurrent severe without psychotic features (principal); R45.851 Suicidal ideations; F41.9 Anxiety disorder, unspecified; F43.10 Post-traumatic stress disorder, unspecified; G47.33 Obstructive sleep apnea (adult) (pediatric); N40.1 Benign prostatic hyperplasia with lower urinary tract symptoms; R33.8 Other retention of urine; R39.11 Hesitancy of micturition; G57.90 Unspecified mononeuropathy of unspecified lower limb; G89.4 Chronic pain syndrome; K64.8 Other hemorrhoids; M77.31 Calcaneal spur, right foot; G47.00 Insomnia, unspecified; F60.89 Other specific personality disorders; M51.36 Other intervertebral disc degeneration, lumbar region; Z86.711 Personal history of pulmonary embolism; Z87.891 Personal history of nicotine dependence
CPT/HCPCS: 72125; 72128; 72131; 73502; 80048; 80053; 80061; 80178; 80307; 81001; 83036; 83735; 84443; 85025; 93306; 93970; 99284; J1650; Q0163

== ENCOUNTER 2016-12-01 07:47 | Emergency (ER) | payer MEDICARE, OTHER ==
[~2016-12-01] VITALS: Ht 175.3 cm; Wt 118.0 kg
[~2016-12-01 07:47] MED LIST: ALPR1TAB3 PO; BUME2TAB PO; CHOL1CAP6; DHEA25CA; FLUO60TA PO; GABA300C5 PO; HYDROMORPHONE PUMP; LITH300T3 PO; MAGN500T4 PO; PRAZ2CAP PO; SULF500T3 PO; ZYPR20TA PO
[2016-12-01 07:52] VITALS: BP 154/74; PULSE 56; RESP 18; TEMP 97.6; O2SAT 96
--- NOTE | 2016-12-01 08:59 | PD ---
HPI Chief Complaint: Injury Time Seen by Provider: 08:48 Travel History International Travel<30 days: No Contact w/Intl Traveler<30days: No Traveled to known affect area: No History of Present Illness HPI The patient is a 61 year-old male who presents to the emergency department for left forearm pain and left hand pain. The patient states he has been awake for 2 days, taking care of his mother who is on hospice. The patient was tired and was in the kitchen earlier today when he fell forward. The patient states he landed on the left hand and complains of pain over the second, third, fourth digit left hand as well as left forearm that radiates up to the left elbow. The patient is right-hand dominant. He is able to use his right upper extremity without difficulty. He denies any head trauma or loss of consciousness during the fall. The patient does have a chronic pain pump in place secondary to 5 previous back surgeries. Symptoms are mild to moderate, exacerbated after falling, and there are no current alleviating factors. PFSH Past Medical History Bipolar Disorder: Yes Anxiety: Yes Depression: Yes Cancer: No Cardiovascular Problems: No Diabetes: No Headaches: No Neurologic: Yes (NEUROPATHY) Psychiatric: Yes (Depression and PTSD) Reproductive: No Seizures: No Past Surgical History Abdominal Surgery: No Cardiac Surgery: No Ear Surgery: No Endocrine Surgery: No Eye Surgery: No Genitourinary Surgery: No Gynecologic Surgery: No Neurologic Surgery: Yes (BACK X 4) Oral Surgery: No Thoracic Surgery: No Other Surgery: Yes (PAIN PUMP) Social History Alcohol Use: No Tobacco Use: No Substance Use: No Allergies-Medications (Allergen,Severity, Reaction): Coded Allergies: No Known Allergies (Unverified , 05/29/16) Reported Meds & Prescriptions Reported Meds & Active Scripts Active Zyprexa (Olanzapine) 20 Mg Tab 20 Mg PO HS 15 Days [place] Carbonate 300 Mg Tab 150 Mg PO Q12HR 15 Days Reported Vitamin D-3 (Cholecalciferol) 1,000 Unit Cap Alprazolam 1 Mg Tab 1 Mg PO Q6H PRN [Hydromorphone Pump] 8.402 DAILY Bumetanide 2 Mg Tab 2 Mg PO Prazosin (Prazosin HCl) 2 Mg Cap 2 Mg PO HS Fluoxetine (Fluoxetine HCl) 60 Mg Tab 80 Mg PO DAILY Sulfasalazine 500 Mg Tab 500 Mg PO DAILY Gabapentin 300 Mg Cap 300 Mg PO HS Review of Systems General / Constitutional: No: Fever Musculoskeletal: Positive: Limited ROM, Pain Skin: No Other (no abrasions or lacerations) Neurologic: No: Paresthesia, Sensory Disturbance Physical Exam Narrative GENERAL: Awake, alert, pleasant 7-year-old male who appears his stated age and not softer and history and examination. SKIN: Focused skin assessment warm/dry. HEAD: Atraumatic. Normocephalic. EYES: Pupils equal and round. No scleral icterus. No injection or drainage. NECK: Trachea midline. No JVD. MUSCULOSKELETAL: The patient has pain upon palpation of the proximal second and third phalanx of the left hand. He is able flex at the MCP, PIP, DIP. He is able flex and extend the left wrist, has mild pain over the radial aspect of the wrist as well as the proximal left forearm. He is able to supinate and pronate with limited range of motion secondary to pain. He is able flex and extend the elbow with limited range of motion secondary to pain. He is able to abduct and extend the left upper extremity at the shoulder. Right upper extremity has full range of motion with flexion extension of the right wrist as well as flexion and extension of the right elbow and supination and pronation right forearm. Intrinsic hand muscles on the right are intact. Positive radial pulses bilateral. NEUROLOGICAL: Awake and alert. No obvious cranial nerve deficits. Motor grossly within normal limits. Normal speech. Nonfocal. PSYCHIATRIC: Appropriate mood and affect; insight and judgment normal. Data Data Last Documented VS Vital Signs Date Time Temp Pulse Resp B/P (MAP) Pulse Ox O2 Delivery O2 Flow Rate FiO2 12/01/16 07:52 97.6 56 18 154/74 (100) 96 Room Air Orders Orders Forearm (2vws) (12/01/16 ) Hand, Limited (2vws) (12/01/16 ) [facility] Medical Decision Making Medical Screen Exam Complete: Yes Emergency Medical Condition: Yes Medical Record Reviewed: Yes Interpretation(s) Last Impressions Radius/Ulna X-Ray 12/01/16 0000 Signed Impressions: Service Date/Time: Thursday, December 01, 2016 08:57 - CONCLUSION: No fracture. Hilario Quinn MD Hand X-Ray 12/01/16 0000 Signed Impressions: Service Date/Time: Thursday, December 01, 2016 08:57 - CONCLUSION: 1. Scattered osteoarthritic changes in the interphalangeal and first CMC joints. 2. No fracture. Hilario Quinn MD Differential Diagnosis differential diagnosis includes fracture, dislocation, contusion, sprain, strain , mechanical fall. Narrative Course X-ray of the left forearm and left hand were obtained. X-rays are negative for fracture, do reveal osteoarthritic changes. The patient is advised to ice, elevate, and activity as tolerated. The patient has an indwelling pain, therefore, no medications are administered. He is advised to take ibuprofen as needed. Follow-up with his primary physician. He will be provided a copy of his x-ray results at discharge. Diagnosis Primary Impression: Left hand pain Additional Impression: Left arm pain Patient Instructions: General Instructions Additional Instructions: Follow-up with your primary physician. Please provide the patient a copy of his x-ray results at discharge. Return if symptoms worsen or progress. Rest, ice, elevate, activity as tolerated. Med/Other Pt SpecificInfo: No Change to Meds Disposition: 01 DISCHARGE HOME Condition: Stable Antione Webster MD Dec 01, 2016 08:59
--- NOTE | 2016-12-01 09:27 | RADRPT ---
EXAM DATE/TIME: 12/01/2016 08:57 [facility] COMPARISON: No previous studies available for comparison. INDICATIONS : Left arm pain post fall. MEDICAL HISTORY : None. SURGICAL HISTORY : None. ENCOUNTER: Initial ACUITY: 1 day PAIN SCORE: 7/10 LOCATION: Left forearm FINDINGS: Two view examination of the left forearm demonstrates no evidence of fracture or dislocation. Bony m ineralization is normal. The soft tissue structures are intact. Osteoarthritic changes at the first CMC joint. CONCLUSION: No fracture. Hilario Quinn MD on December 01, 2016 at 9:24 Board Certified Radiologist. This report was verified electronically.
--- NOTE | 2016-12-01 09:29 | RADRPT ---
EXAM DATE/TIME: 12/01/2016 08:57 [facility] COMPARISON: No previous studies available for comparison. INDICATIONS : Lfet hand pain post fall. MEDICAL HISTORY : None. SURGICAL HISTORY : None. ENCOUNTER: Initial ACUITY: 1 day PAIN SCORE: 7/10 LOCATION: Left palm of hand FINDINGS: Two view examination of the left hand demonstrates no soft tissue swelling, dislocation, or fracture. Bony mineralization is normal throughout. There are some degenerative osteoarthritic changes and sca ttered interphalangeal joints and first CMC joint. CONCLUSION: 1. Scattered osteoarthritic changes in the interphalangeal and first CMC joints. 2. No fracture. Hilario Quinn MD on December 01, 2016 at 9:25 Board Certified Radiologist. This report was verified electronically.
== END 2016-12-01 10:28 | disposition home or self-care (01) ==
LOC: PHED 07:47 → PHEFT 10:28
DX: M79.642 Pain in left hand (principal); M79.602 Pain in left arm; M19.042 Primary osteoarthritis, left hand; W19.XXXA Unspecified fall, initial encounter; Y92.000 Kitchen of unspecified non-institutional (private) residence as the place of occurrence of the external cause
CPT/HCPCS: 73090; 73120; 99283

== ENCOUNTER 2017-06-15 08:36 | Emergency (ER) | payer OTHER ==
[~2017-06-15] VITALS: Ht 175.3 cm; Wt 118.0 kg
[~2017-06-15 08:36] MED LIST changes: -CHOL1CAP6; +D31000CA3; -DHEA25CA; -MAGN500T4 PO
[2017-06-15 08:44] VITALS: BP 182/75; PULSE 78; RESP 18; TEMP 98.9; O2SAT 96
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
[2017-06-15] MEDS ORDERED: MELO7.5T27 PO (09:23)
[2017-06-15] MEDS ORDERED: BUSP1TAB PO (09:23)
[2017-06-15] MEDS ORDERED: BUPR75TA PO (09:23)
[2017-06-15] MEDS ORDERED: GABA300C5 PO (09:23)
[2017-06-15] MEDS ORDERED: VITA200C3 PO (09:25)
[2017-06-15] MEDS ORDERED: BUPR150T3 PO (09:25)
[2017-06-15] MEDS ORDERED: METO5TAB3 PO (09:25)
[2017-06-15] MEDS ORDERED: MAGN500T5 PO (09:26)
[2017-06-15] MEDS ORDERED: SULF500T3 PO (09:26)
[2017-06-15] MEDS ORDERED: TETANUS/DIPHTHERIA TOXOID ADULT 0.5 ML VIAL IM ONE (10:00)
[2017-06-15] MEDS ORDERED: medical marijuana (10:00)
== END 2017-06-15 10:30 | disposition home or self-care (01) ==
LOC: PHED 08:36
DX: M54.9 Dorsalgia, unspecified (principal); S00.01XA Abrasion of scalp, initial encounter; F31.9 Bipolar disorder, unspecified; F32.9 Major depressive disorder, single episode, unspecified; G62.9 Polyneuropathy, unspecified; F43.10 Post-traumatic stress disorder, unspecified; V49.9XXA Car occupant (driver) (passenger) injured in unspecified traffic accident, initial encounter; Z23 Encounter for immunization; Z79.899 Other long term (current) drug therapy
CPT/HCPCS: 70450; 90471; 90714